=== PATIENT | female | born 1935 | race Caucasian/White ===

== ENCOUNTER 2016-10-27 10:10 | Inpatient (IN) | payer MEDICARE, OTHER ==
[~2016-10-27] VITALS: Ht 162.6 cm; Wt 90.4 kg
[2016-10-27 04:57] VITALS: BP 135/64; PULSE 68; RESP 18; TEMP 97.3; O2SAT 98
[~2016-10-27 10:10] MED LIST: ATOR40TA PO; CALTTAB5 PO; CARV12.52 PO; ESTR1TAB PO; LISI10TA PO; NIAC500T5 PO; OMEP20CA5 PO; ST J81CH PO; VITA400C70 PO
[2016-10-27] MEDS ORDERED: INSULIN HUMAN REGULAR 1,000 UNITS/10 ML VIAL SQ PRN (10:45)
[2016-10-27] MEDS ORDERED: POVIDONE IODINE 5% (ANTISEPSIS KIT) 4 APPLICATIONS EACH NARE PRN (10:45)
[2016-10-27] MEDS ORDERED: SODIUM CHLORID 0.9% 500 ML IV PRN (10:45)
[2016-10-27] MEDS ORDERED: LACTATED RINGER'S 1000 ML IV PRN (10:45)
[2016-10-27] MEDS ORDERED: VANCOMYCIN 1000 MG/NS 250 ML (for <70 kg) IV SCH ×2 (10:45)
[2016-10-27] MEDS ORDERED: CHLORHEXIDINE GLUCONATE 2 % 1 PACK (2 CLOTHS) TOPICAL PRN (10:45)
[2016-10-27] MEDS ORDERED: METOPROLOL TARTRATE 25 MG TAB PO PRN (10:45)
[2016-10-27] MEDS ORDERED: CHLORHEXIDINE GLUCONATE 4% SOLN 120 ML BTL TOPICAL SCH (10:45)
[2016-10-27] MEDS ORDERED: ceFAZolin 2 GM PREMIX 50 ML IV SCH (10:45)
[2016-10-27] MEDS ORDERED: ROPIVACAINE PERI-ARTICULAR INJECTION. P-ARTICULR SCH ×5 (11:00)
[2016-10-27] MEDS ORDERED: CARV12.52 PO (11:04)
[2016-10-27] MEDS ORDERED: NEXI20CA PO (11:04)
[2016-10-27] MEDS ORDERED: OMEP20TA PO (11:04)
[2016-10-27] MEDS ORDERED: NIAC500T5 PO (11:04)
[2016-10-27] MEDS ORDERED: LISI10TA PO (11:04)
[2016-10-27] MEDS ORDERED: ASPI81CH CHEW (11:04)
[2016-10-27] MEDS ORDERED: ATOR1TAB18 PO (11:04)
[2016-10-27] MEDS ORDERED: VITA200C3 PO (11:04)
[2016-10-27] MEDS ORDERED: ESTR1TAB PO (11:04)
[2016-10-27 11:32] LABS: AUTOMATED NEUTROPHIL # 3.1 TH/MM3 (1.8-7.7); BASOPHIL % 0.4 % (0.0-2.0); EOSINOPHIL # 0.1 TH/MM3 (0-0.4); EOSINOPHIL % 2.7 % (0.0-4.0); HEMATOCRIT 37.2 % (35.0-46.0); HEMO FLAGS DIFF FINAL; LYMPH % 31.3 % (9.0-44.0); LYMPHOCYTE # 1.7 TH/MM3 (1.0-4.8); MEAN CELL VOLUME 83.6 FL (80.0-100.0); MEAN CORPUSCULAR HEMOGLOBIN 26.9 PG (27.0-34.0); MEAN CORPUSCULAR HGB CONC 32.1 % (32.0-36.0); MONO % 9.3 % (0.0-8.0); NEUT % 56.3 % (16.0-70.0); PLATELET COUNT 125 TH/MM3 (150-450); RED BLOOD COUNT 4.45 MIL/MM3 (4.00-5.30); RED CELL DISTRIBUTION WIDTH 15.7 % (11.6-17.2); WHITE BLOOD COUNT 5.5 TH/MM3 (4.0-11.0)
[2016-10-27] MEDS ORDERED: GENTAMICIN SULFATE 80 MG/2 ML VIAL ONE (11:51)
--- NOTE | 2016-10-27 11:51 | EKG ---
Date Performed: 10/27/2016 Time Performed: 10:57:54 PTAGE: 81 years EKG: Sinus rhythm LEFT AXIS DEVIATION LOW QRS VOLTAGE IN PRECORDIAL LEADS POSSIBLE ANTERIOR MYOCARDIAL INFARCTION , OR OBABLY OLD ABNORMAL ECG PREVIOUS TRACING : 05/02/2014 09.43 No significant change from previous tracing noted DOCTOR: Marcos Nolan Interpretating Date/Time 10/27/2016 11:51:02
[2016-10-27] MEDS ORDERED: BUPIVACAINE LIPOSOME PF 1.3% 20 ML VIAL ONE (11:58)
[2016-10-27] MEDS ORDERED: ONDANSETRON HCL 4 MG/2 ML VIAL IV PUSH ONE (12:00)
[2016-10-27] MEDS ORDERED: PHENYLEPH/NS 1000 MCG/10 ML SYR IV ONE (12:00)
[2016-10-27] MEDS ORDERED: MORPHINE SULFATE 4 MG/ML INJ IV ONE (12:00)
[2016-10-27] MEDS ORDERED: ePHEDrine/NS 25 MG/5 ML SYR IV ONE (12:00)
[2016-10-27] MEDS ORDERED: LACTATED RINGER'S 1000 ML INJ 1,000 ML IV ONE (12:00)
[2016-10-27] MEDS ORDERED: NEOSTIGMINE 3 MG/3 ML SYR IV ONE (12:00)
[2016-10-27] MEDS ORDERED: DEXAMETHASONE SOD PHOS 4 MG/ML VIAL IV ONE (12:00)
[2016-10-27] MEDS ORDERED: LABETALOL HCL 100 MG/20 ML VIAL IV ONE (12:00)
[2016-10-27] MEDS ORDERED: ROCURONIUM INJ 50 MG/5 ML SYRINGE IV PUSH ONE (12:00)
[2016-10-27] MEDS ORDERED: LIDOCAINE HCL 1% PF 5 ML AMPULE OTHER ONE (12:00)
[2016-10-27] MEDS ORDERED: GLYCOPYRROLATE 1 MG/5 ML SYRINGE IV PUSH ONE (12:00)
[2016-10-27] MEDS ORDERED: ACETAMINOPHEN 1000 MG/100 ML 100 ML IV ONE (13:09)
[2016-10-27] MEDS ORDERED: Post-op Orders (for Pharmacy) MISC XX ONE (14:25)
[2016-10-27] MEDS: SODIUM CHLORIDE 0.9% FLUSH 5 ML FLUSH IVF SCH ×2 (14:45→21:00)
[2016-10-27] MEDS ORDERED: MORPHINE SULFATE 8 MG/ML INJ IM PRN (14:45)
[2016-10-27] MEDS ORDERED: SODIUM CHLORIDE 0.9% FLUSH 5 ML FLUSH IVF PRN (14:45)
[2016-10-27] MEDS ORDERED: ALUMINUM/MAGNESIUM/SIMETH 30 ML CUP PO PRN (14:45)
[2016-10-27] MEDS ORDERED: ZOLPIDEM TARTRATE 5 MG TAB PO PRN (14:45)
[2016-10-27] MEDS ORDERED: ONDANSETRON HCL 4 MG/2 ML VIAL IVP PRN (14:45)
[2016-10-27] MEDS ORDERED: ACETAMINOPHEN/HYDROcodone 325 MG/7.5 MG TAB PO PRN (14:45)
--- NOTE | 2016-10-27 14:46 | HHI.PR ---
Immediate Post Op Note Procedure Date: Oct 27, 2016 Pre Op Diagnosis: (1) Painful total knee replacement (2) Osteoarthritis of right knee Post Op Diagnosis: (1) Painful total knee replacement (2) Osteoarthritis of right knee Surgeon: Arturo Gates M.D. Grave Digger(s): Lizbeth Gallegos PA-C Procedure: R rev TKA Complications: none Estimated blood loss: 25cc Anesthesia: General, Regional Block, Local Drains: Hemovac Tourniquet time (min at mmHg) 23 @ 250 mmhg Patient to: PACU Patient Condition: Good Implant/Devices: SEE IMPLANT LOG (if applicable) Date/Time of Procedure: SEE SURGICAL CARE RECORD Arturo Gates MD Oct 27, 2016 14:46
--- NOTE | 2016-10-27 14:49 | HHI.FF ---
Face to Face Verification Diagnosis: (1) Painful total knee replacement Physical Therapy Gait training, Transfer training, bed to chair Knee: Total knee, Protocol: Right, Full weight bearing Right LE Weight Bearing: WB as tolerated Left LE Weight Bearing: WB as tolerated Nursing RN: 3 days/week x 2 weeks Nursing: Dressing changes (clean incision with alcohol and apply dry sterile dressing ) Additional Instructions Pt/INR q Thursday and call/text results to Lizbeth SILVA [phone] Goal INR 1.5-1.8 I have seen patient Rosalie Christiansen on 10/27/16. My clinical findings support the need for the requested home health care services because: Deconditioned w/ increased weakness I certify that my clinical findings support that this patient is homebound because: Post-op weakness Arturo Gates MD Oct 27, 2016 14:49
[2016-10-27] MEDS ORDERED: BEDSIDE COMMODE1 MI1 (14:51)
[2016-10-27] MEDS ORDERED: CPMMACHINE (14:51)
[2016-10-27] MEDS ORDERED: WALKER WHEELS/F1 MIS (14:51)
[2016-10-27] MEDS ORDERED: *morphine SULFATE 8 MG/ML PERIprocedure ONLY ONE (14:54)
[2016-10-27] MEDS ORDERED: *ENALAPRILAT 1.25 MG/ML VIAL PERIprocedural Use ONLY ONE (14:54)
[2016-10-27] MEDS: LACTATED RINGER'S 1000 ML INJ 1,000 ML IV SCH (15:00)
--- NOTE | 2016-10-27 15:10 | RADRPT ---
EXAM DATE/TIME: 10/27/2016 14:52 [facility] COMPARISON: No previous studies available for comparison. INDICATIONS : Post op right knee surgery. MEDICAL HISTORY : None. SURGICAL HISTORY : None. ENCOUNTER: Initial ACUITY: 1 day PAIN SCORE: 10/10 LOCATION: Right knee FINDINGS: AP and lateral views of the right knee demonstrate changes consistent with recent total knee arthropl asty with metallic hardware in place in the distal femur and proximal tibia. There is a radiolucent p atellar component. Skin megan are present anteriorly. There is soft tissue gas present, as expected . A surgical drain is in place. CONCLUSION: Expected changes following right total knee arthroplasty. Santosh Negrete MD on October 27, 2016 at 15:08 Board Certified Radiologist. This report was verified electronically.
[2016-10-27] MEDS ORDERED: DO NOT ADM ANY ANTICOAGULANT DRUGS PRN (15:30)
[2016-10-27] MEDS ORDERED: ENALAPRILAT 1.25 MG/ML VIAL IV PUSH PRN (17:00)
--- NOTE | 2016-10-27 18:08 | PD.CONS ---
HPI Service [facility] Hospitalists Consult Requested By ortho Reason for Consult Medical management Primary Care Physician Radha Amaya M.D. Diagnoses: History of Present Illness 81 years old female admitted for revision right total knee arthroplasty, hospitalist service consulted to see patient regarding medical management, patient stated she has hypertension and hypercholesterolemia for which she take medication, she denied anyH/O heart attack or stroke, she denied smoking or drinking alcohol, currently she is in post op doing well awake alert, no chest pain short of breath fever or chills, she feels hungry. Review of Systems All systems reviewed and was positive for what is mentioned in history of present illness otherwise negative Past Family Social History Allergies: Coded Allergies: codeine (Unverified Allergy, Severe, Nausea/Vomiting, 09/23/16) PT NOT SURE SHE IS ALLERGIC TO THIS- MILD REACTION penicillin G (Unverified Allergy, Severe, RASH, 09/23/16) MILD REACTION risedronate sodium (Unverified Allergy, Severe, Nausea/Vomiting, 09/23/16) MILD REACTION Past Medical History Hypertension, hyperlipidemia Past Surgical History Right total knee arthroplasty Family History Review with the patient,not aware of significant medical history runs in his family Social History Denied tobacco alcohol or illicit drug abuse Physical Exam Vital Signs Vital Signs Date Time Temp Pulse Resp B/P (MAP) Pulse Ox O2 Delivery O2 Flow Rate FiO2 10/27/16 17:00 58 16 160/71 (100) 96 Room Air 10/27/16 16:45 56 16 100 10/27/16 16:00 54 16 159/70 (99) 99 Nasal Cannula 2 10/27/16 15:45 52 16 165/71 (102) 99 Nasal Cannula 2 10/27/16 15:30 60 16 184/94 (124) 100 Nasal Cannula 2 10/27/16 15:15 56 16 161/83 (109) 98 Nasal Cannula 2 10/27/16 15:00 54 16 157/68 (97) 97 Nasal Cannula 2 10/27/16 14:45 58 16 161/74 (103) 99 Nasal Cannula 2 10/27/16 14:30 66 16 204/89 (127) 98 Nasal Cannula 2 10/27/16 14:25 97.6 68 16 225/93 (137) 99 Nasal Cannula 2 10/27/16 11:04 98.4 67 20 166/73 (104) 99 Physical Exam GENERAL: This is a well-nourished, well-developed patient, in no apparent distress. SKIN: No rashes, warm and dry HEAD: Atraumatic. Normocephalic. EYES: Pupils equal round and reactive. Extraocular motions intact. No scleral icterus. ENT: Nose without bleeding, or drainage, Airway patent. NECK: Trachea midline. Supple CARDIOVASCULAR: Regular rate and rhythm without murmurs, gallops, or rubs. RESPIRATORY: Fair air entry bilaterally. No wheezes, rales, or rhonchi. GASTROINTESTINAL: Abdomen soft, non-tender, nondistended. Positive bowel sounds MUSCULOSKELETAL: Extremities without clubbing, cyanosis, or edema. Pedal pulses appreciated, right lower extremity in gauze, able to wiggle toes NEUROLOGICAL: Awake and alert. Moves all extremity. Normal speech.no focal neurological deficit Laboratory Laboratory Tests Test 10/27/16 11:05 White Blood Count 5.5 Red Blood Count 4.45 Hemoglobin 11.9 Hematocrit 37.2 Mean Corpuscular Volume 83.6 Mean Corpuscular Hemoglobin 26.9 Mean Corpuscular Hemoglobin Concent 32.1 Red Cell Distribution Width 15.7 Platelet Count 125 Mean Platelet Volume 9.0 Neutrophils (%) (Auto) 56.3 Lymphocytes (%) (Auto) 31.3 Monocytes (%) (Auto) 9.3 Eosinophils (%) (Auto) 2.7 Basophils (%) (Auto) 0.4 Neutrophils # (Auto) 3.1 Lymphocytes # (Auto) 1.7 Monocytes # (Auto) 0.5 Eosinophils # (Auto) 0.1 Basophils # (Auto) 0.0 CBC Comment DIFF FINAL Differential Comment Result Diagram: 10/27/16 1105 Imaging Last Impressions Knee X-Ray 10/27/16 1438 Signed Impressions: Service Date/Time: Thursday, October 27, 2016 14:52 - CONCLUSION: Expected changes following right total knee arthroplasty. Santosh Negrete MD Assessment and Plan Assessment and Plan 81 years old female admitted for Right total knee arthroplasty revision Uncontrolled Hypertension, could be due to pain Hyperlipidemia DVT prophylaxis per ortho Recommendation: Will check BMP Agree with continuing lisinopril and carvedilol hydrochlorothiazide, will add Vasotec as needed after making sure renal function is good, make sure of good pain control Agree with continuing statin Warfarin for DVT prophylaxis started by ortho Morphine for pain management Thank you for this consultation will follow patient along with you Discussed Condition With patient Tawnya Moser MD Oct 27, 2016 18:08
[2016-10-27 20:41] VITALS: O2SAT 94
[2016-10-27 20:45] VITALS: BP 151/74; PULSE 79; RESP 18; TEMP 97.2; O2SAT 96
[2016-10-27] MEDS: ATORVASTATIN 80 MG TAB PO SCH (22:10)
[2016-10-27] MEDS: CARVEDILOL 12.5 MG TAB PO SCH (22:10)
[2016-10-27 23:00] VITALS: BP 143/70; PULSE 76; RESP 18; TEMP 98.6; O2SAT 97
[2016-10-28] MEDS: LACTATED RINGER'S 1000 ML INJ 1,000 ML IV SCH (03:08)
[2016-10-28 04:50] VITALS: BP 167/89; PULSE 79; RESP 18; TEMP 97.5; O2SAT 95
[2016-10-28] MEDS: ACETAMINOPHEN/HYDROcodone 325 MG/7.5 MG TAB PO PRN ×4 (05:28→21:25)
--- NOTE | 2016-10-28 07:28 | PD.ORT.PN ---
Subjective Subjective Remarks POD#1 R Rev TKR No sob,no chest pain Discussed with patient operative findings and answered multiple questions Objective Vitals Vital Signs Date Time Temp Pulse Resp B/P (MAP) Pulse Ox O2 Delivery O2 Flow Rate FiO2 10/27/16 23:00 98.6 76 18 143/70 (94) 97 10/27/16 20:45 97.2 79 18 151/74 (99) 96 10/27/16 20:41 94 21 10/27/16 19:30 65 16 156/72 (100) 95 Room Air 10/27/16 18:00 60 16 146/79 (101) 94 Room Air 10/27/16 17:00 58 16 160/71 (100) 96 Room Air 10/27/16 16:45 56 16 100 10/27/16 16:00 54 16 159/70 (99) 99 Nasal Cannula 2 10/27/16 15:45 52 16 165/71 (102) 99 Nasal Cannula 2 10/27/16 15:30 60 16 184/94 (124) 100 Nasal Cannula 2 10/27/16 15:15 56 16 161/83 (109) 98 Nasal Cannula 2 10/27/16 15:00 54 16 157/68 (97) 97 Nasal Cannula 2 10/27/16 14:45 58 16 161/74 (103) 99 Nasal Cannula 2 10/27/16 14:30 66 16 204/89 (127) 98 Nasal Cannula 2 10/27/16 14:25 97.6 68 16 225/93 (137) 99 Nasal Cannula 2 10/27/16 11:04 98.4 67 20 166/73 (104) 99 I/O 10/27/16 10/27/16 10/27/16 10/28/16 10/28/16 10/28/16 07:00 15:00 23:00 07:00 15:00 23:00 Intake Total 700 ml 700 ml Output Total 25 ml 510 ml Balance 675 ml 190 ml Intake Oral 360 ml IV Total 340 ml Other 700 ml Output Drainage Total 110 ml Estimated Blood Loss 25 ml Other 400 ml # Voids 2 # Bowel Movements 0 Result Diagram: 10/27/16 1105 Imaging Last 24 hours Impressions Knee X-Ray 10/27/16 1438 Signed Impressions: Service Date/Time: Thursday, October 27, 2016 14:52 - CONCLUSION: Expected changes following right total knee arthroplasty. Santosh Negrete MD Objective Remarks N/V intact Dressings dry Assessment & Plan Assessment and Plan Ortho stable PT/Rehab Coumadin,TEDS,Sequentials for DVT prophylaxsis D/C home on Wed with [facility] PT/Nursing Arturo Gates MD Oct 28, 2016 07:28
[2016-10-28 08:00] VITALS: BP_SYST 102; BP_SYST 180; BP_DIAS 71; BP_DIAS 75; PULSE 72; RESP 16; RESP 18; TEMP 96; TEMP 97.6; O2SAT 94; O2SAT 97
[2016-10-28 08:30] LABS: HEMATOCRIT 30.1 % (35.0-46.0); REVIEW FLAG FINAL
[2016-10-28 08:36] LABS: PROTHROMBIN TIME - PATIENT 11.1 SEC (9.8-11.6)
[2016-10-28 08:38] VITALS: O2SAT 98
[2016-10-28] MEDS: SODIUM CHLORIDE 0.9% FLUSH 5 ML FLUSH IVF SCH ×2 (09:00→21:17)
[2016-10-28] MEDS ORDERED: NON-FORMULARY DRUG (Lisinopril-Hctz 1 TAB) PO SCH (09:00)
[2016-10-28] MEDS ORDERED: NON-FORMULARY DRUG (Esomeprazole DR (Nexium) 20 MG) PO SCH (09:00)
[2016-10-28] MEDS ORDERED: LISINOPRIL 10 MG TAB PO SCH (09:00)
[2016-10-28] MEDS: PANTOPRAZOLE SOD 20 MG DELAYED RELEASE TAB PO SCH (10:21)
[2016-10-28] MEDS: HYDROCHLOROTHIAZIDE 25 MG TAB PO SCH (10:22)
[2016-10-28] MEDS: CARVEDILOL 12.5 MG TAB PO SCH ×2 (10:22→21:15)
[2016-10-28 12:00] VITALS: BP_SYST 130; BP_DIAS 69; BP_DIAS 89; PULSE 61; PULSE 66; RESP 16; RESP 18; TEMP 96.7; TEMP 97; O2SAT 97
[2016-10-28] MEDS: ESTRADIOL 1 MG TAB PO SCH (12:49)
--- NOTE | 2016-10-28 15:47 | HHI.PR ---
Objective Vitals Vital Signs Date Time Temp Pulse Resp B/P (MAP) Pulse Ox O2 Delivery O2 Flow Rate FiO2 10/28/16 12:00 96.7 66 18 130/69 (89) 97 10/28/16 08:38 98 21 10/28/16 08:00 97.6 72 18 180/75 (110) 97 10/28/16 04:50 97.5 79 18 167/89 (115) 95 10/27/16 23:00 98.6 76 18 143/70 (94) 97 10/27/16 20:45 97.2 79 18 151/74 (99) 96 10/27/16 20:41 94 21 10/27/16 19:30 65 16 156/72 (100) 95 Room Air 10/27/16 18:00 60 16 146/79 (101) 94 Room Air 10/27/16 17:00 58 16 160/71 (100) 96 Room Air 10/27/16 16:45 56 16 100 10/27/16 16:00 54 16 159/70 (99) 99 Nasal Cannula 2 I/O 10/27/16 10/27/16 10/27/16 10/28/16 10/28/16 10/28/16 06:59 14:59 22:59 06:59 14:59 22:59 Intake Total 700 ml 700 ml 480 ml Output Total 25 ml 510 ml Balance 675 ml 190 ml 480 ml Intake Oral 360 ml 480 ml IV Total 340 ml Other 700 ml Output Drainage Total 110 ml Estimated Blood Loss 25 ml Other 400 ml # Voids 2 4 # Bowel Movements 0 0 Result Diagram: 10/28/16 0500 Tawnya Moser MD Oct 28, 2016 15:47
[2016-10-28] MEDS ORDERED: WARFARIN SOD 5 MG TAB PO SCH (16:00)
[2016-10-28 19:56] VITALS: BP 146/80; PULSE 68; RESP 18; TEMP 97.5; O2SAT 97
--- NOTE | 2016-10-28 20:33 | HHI.PR ---
Subjective Remarks Resting comfortably in bed No event overnight Denied chest and or short of breath No fever or chills Objective Vitals Vital Signs Date Time Temp Pulse Resp B/P (MAP) Pulse Ox O2 Delivery O2 Flow Rate FiO2 10/28/16 19:56 97.5 68 18 146/80 (102) 97 10/28/16 12:00 97.0 61 16 130/89 (103) 97 10/28/16 08:38 98 21 10/28/16 08:00 97.6 72 18 180/75 (110) 97 10/28/16 08:00 96.0 72 16 102/71 (81) 94 10/28/16 04:50 97.5 79 18 167/89 (115) 95 10/27/16 23:00 98.6 76 18 143/70 (94) 97 10/27/16 20:45 97.2 79 18 151/74 (99) 96 10/27/16 20:41 94 21 I/O 10/27/16 10/27/16 10/27/16 10/28/16 10/28/16 10/28/16 07:00 15:00 23:00 07:00 15:00 23:00 Intake Total 700 ml 700 ml 480 ml 600 ml Output Total 25 ml 510 ml Balance 675 ml 190 ml 480 ml 600 ml Intake Oral 360 ml 480 ml 600 ml IV Total 340 ml Other 700 ml Output Drainage Total 110 ml Estimated Blood Loss 25 ml Other 400 ml # Voids 2 4 4 # Bowel Movements 0 0 0 Result Diagram: 10/28/16 0500 Objective Remarks GENERAL: This is a well-nourished, well-developed patient, in no apparent distress. SKIN: No rashes, warm and dry HEAD: Atraumatic. Normocephalic. EYES: Pupils equal round and reactive. Extraocular motions intact. No scleral icterus. ENT: Nose without bleeding, or drainage, Airway patent. NECK: Trachea midline. Supple CARDIOVASCULAR: Regular rate and rhythm without murmurs, gallops, or rubs. RESPIRATORY: Fair air entry bilaterally. No wheezes, rales, or rhonchi. GASTROINTESTINAL: Abdomen soft, non-tender, nondistended. Positive bowel sounds MUSCULOSKELETAL: Extremities without clubbing, cyanosis, or edema. Pedal pulses appreciated, right lower extremity in gauze, able to wiggle toes NEUROLOGICAL: Awake and alert. Moves all extremity. Normal speech.no focal neurological deficit A/P Assessment and Plan 81 years old female admitted for Right total knee arthroplasty revision Uncontrolled Hypertension, could be due to pain Hyperlipidemia DVT prophylaxis per ortho Recommendation: BMP reviewed within normal limit Will increase lisinopril to optimize blood pressure reading continue carvedilol hydrochlorothiazide, Vasotec as needed after making sure renal function is good , make sure of good pain control Agree with continuing statin Warfarin for DVT prophylaxis started by ortho Morphine for pain management Tawnya Moser MD Oct 28, 2016 20:33
[2016-10-28] MEDS: ATORVASTATIN 80 MG TAB PO SCH (21:16)
--- NOTE | 2016-10-28 22:56 | MP ---
cc: JOSE ELIAS GATES M.D., RENA M. M.D. ELSAKR, ASHRAF S. M.D. DATE OF SURGERY: 10/27/2016 PREOPERATIVE DIAGNOSIS 1. Right knee failed tibial polyethylene plastic. 2. Status post right total knee arthroplasty May 24, 2003. POSTOPERATIVE DIAGNOSIS 1. Right knee failed tibial polyethylene plastic. 2. Status post right total knee arthroplasty May 24, 2003. PROCEDURE: Right revisional total knee arthroplasty, tibial polyethylene plastic. SURGEON: Elbert Gates MD. GLIDING PILOT INSTRUCTOR: PARIS Garza My assistant in nursing Lizbeth Gallegos PA-C was present for my portion of the surgical case. She was medically necessary for my portion of the case because of the complexity of the case and to facilitate the performance of the procedure. The JUNK REMOVAL SPECIALIST at the back table did not have the skill set for this case to manipulate the instruments, e.g., the multiple different types of soft tissue retractors, trial implants and permanent implants. SPECIMEN: None. ESTIMATED BLOOD LOSS: 25 cc. COMPLICATIONS: None. ANESTHESIA: General, regional, intra-articular. DRAINS: Two. TOURNIQUET TIME: 23 minutes at 250 mmHg. CONDITION: Stable. PLAN OF ACTIVITY: Per orders. DESCRIPTION OF PROCEDURE: The patient was brought to the operating room and had satisfactory general anesthesia by Dr. Esquivel, department of anesthesia, and satisfactory regional anesthesia by Dr. Esquivel. The right lower extremity was prepped and draped in the usual sterile manner. The extremity was exsanguinated with elevation. Tourniquet inflated to 250 mmHg. Previous anterior skin incision scar was surgically excised. Primary capsulotomy was performed. Patient found to have polyethylene wear with loose pieces of polyethylene plastic within the joint itself. The metal surfaces of the tibia and the femur were still satisfactory. There is no evidence any loosening involving the patella, the femoral component or the tibial component. The polyethylene plastic was removed. The knee was irrigated with copious amounts of saline, the wound itself was dry. A trial 12 x 71 mm polyethylene plastic joint insert placed in tibia. Patient found to have excellent balance with flexion and extension. The trial component was removed and a 12 x 71 millimeter tibial component was inserted onto the tibial tray, with appropriate clipping mechanism. Synovectomy was performed. The knee was injected with 100 cc of local anesthesia provided by the pharmaceutical department. The wound was irrigated with 4000 cc of sterile saline antibiotic solution, closed over two Hemovac drains hooked up to the Autovac system. The wound was closed in multiple layers. The extensor mechanism and capsule was repaired using multiple interrupted #2 Tycron suture. Subcutaneous layers with 0 Vicryl and 2-0 Vicryl. Skin approximated with skin megan. Sterile dressings were applied. The patient tolerated the procedure well and went to the Recovery Room in stable and satisfactory condition. MD CARMINE Cary/MARK /2:23 PM /10:35 PM
[2016-10-28 23:08] VITALS: BP 100/55; PULSE 69; RESP 18; TEMP 96.7; O2SAT 97
[2016-10-29 03:44] VITALS: BP 135/64; PULSE 68; RESP 18; TEMP 97.3; O2SAT 98
[2016-10-29] MEDS: ACETAMINOPHEN/HYDROcodone 325 MG/7.5 MG TAB PO PRN ×2 (03:56→09:49)
--- NOTE | 2016-10-29 07:48 | PD.ORT.PN ---
Subjective Subjective Remarks pt doing better, does state the knee is quite sore ready to be discharged home today Objective Vitals Vital Signs Date Time Temp Pulse Resp B/P (MAP) Pulse Ox O2 Delivery O2 Flow Rate FiO2 10/29/16 03:44 97.3 68 18 135/64 (87) 98 10/28/16 23:08 96.7 69 18 100/55 (70) 97 10/28/16 19:56 97.5 68 18 146/80 (102) 97 10/28/16 12:00 97.0 61 16 130/89 (103) 97 10/28/16 08:38 98 21 10/28/16 08:00 97.6 72 18 180/75 (110) 97 10/28/16 08:00 96.0 72 16 102/71 (81) 94 I/O 10/28/16 10/28/16 10/28/16 10/29/16 10/29/16 10/29/16 07:00 15:00 23:00 07:00 15:00 23:00 Intake Total 480 ml 600 ml 720 ml 480 ml Balance 480 ml 600 ml 720 ml 480 ml Intake Oral 480 ml 600 ml 720 ml 480 ml # Voids 4 4 4 8 # Bowel Movements 0 0 0 0 Result Diagram: 10/28/16 0500 Imaging Last 24 hours Impressions Knee X-Ray 10/27/16 1438 Signed Impressions: Service Date/Time: Thursday, October 27, 2016 14:52 - CONCLUSION: Expected changes following right total knee arthroplasty. Santosh Negrete MD Objective Remarks patient sitting up in chair, just ordered breakfast right knee dressing dry and intact no calf tenderness N/V intact Assessment & Plan Assessment and Plan POD # 2 s/p R rev TKA Ortho stable PT/Rehab Coumadin,TEDS,Sequentials for DVT prophylaxsis D/C home with home health care today Lizbeth Gallegos Oct 29, 2016 07:48
[2016-10-29] MEDS: ESTRADIOL 1 MG TAB PO SCH (07:53)
[2016-10-29] MEDS: HYDROCHLOROTHIAZIDE 25 MG TAB PO SCH (07:54)
[2016-10-29] MEDS: CARVEDILOL 12.5 MG TAB PO SCH (07:55)
[2016-10-29] MEDS: PANTOPRAZOLE SOD 20 MG DELAYED RELEASE TAB PO SCH (07:55)
[2016-10-29] MEDS: SODIUM CHLORIDE 0.9% FLUSH 5 ML FLUSH IVF SCH (07:55)
[2016-10-29 08:00] VITALS: BP 166/71; PULSE 67; RESP 18; TEMP 98.3; O2SAT 98
[2016-10-29 08:30] LABS: PROTHROMBIN TIME - PATIENT 11.2 SEC (9.8-11.6)
[2016-10-29] MEDS ORDERED: LISINOPRIL 20 MG TAB PO SCH (09:00)
[2016-10-29] MEDS ORDERED: HYDR-3288 PO ×2 (11:06→11:07)
[2016-10-29] MEDS ORDERED: COUM6TAB PO (11:07)
--- NOTE | 2016-11-10 09:25 | HHI.DS ---
Discharge Summary Admission Date Oct 27, 2016 at 10:10 Discharge Date: Oct 29, 2016 Admitting Diagnosis R painful TKA Diagnosis: (1) Painful total knee replacement Diagnosis: Principal ICD Codes: T84.84XA - Painful total knee replacement; Z96.659 - Presence of unspecified artificial knee joint Status: Acute (2) Osteoarthritis of right knee Diagnosis: Secondary ICD Codes: M17.11 - Unilateral primary osteoarthritis, right knee Procedures R rev TKA Brief History This is a 81 year old female patient who presents with the following history. Patient originally underwent right total knee arthroplasty on 05/24/2003. She did very well with her right knee. Patient was in [place] this past summer vacationing. She woke up with severe right knee pain radiating into her right hip. Feels like right knee is going to give out on her. Patient ambulating with a cane. SX 10/02/16 Right knee manipulation, fluoroscopic guidance of needle, right knee aspiration under anesthesia Patient states that there are no changes except increased pain with certain ROM. Her cultures at time of knee aspiration came back at no growth. Sed rate, ESR and WBC came back within normal limits. Bone scan returned no evidence of radiographic findings to suggest loosening. Patient was having continued pain and problems with her right knee and revisional knee replacement was recommended. Imaging xrays of the right knee show total knee arthroplasty, genu valgus of 9.7 degrees PE at Discharge patient sitting up in chair, just ordered breakfast right knee dressing dry and intact no calf tenderness N/V intact Hospital Course Patient underwent satisfactory anaesthesia by the dept of anaesthesia. She underwent revisional right total knee arthroplasty on the date of admission. She was treated with low dose coumadin night before surgery and will continue with low dose coumadin for four weeks post-operatively. She was started with full weight bearing ambulation, therapy and CPM machine on pod #1. She was also seen and followed by medical team. She had knee high TEDS and sequentials during her stay for DVT prop. She progressed well and was discharged home with [facility] nursing and PT on pod #2 in stable condition. Pt Condition on Discharge: Stable Discharge Disposition: Disch w/ Home Health Serv Discharge Instructions Diet Instructions: Coumadin (Warfarin) Diet Activities You Can Perform: Weight Bearing as Lizbeth Jett Nov 10, 2016 09:25
== END 2016-10-29 13:50 | disposition home health service (06) | DRG 489 ==
LOC: HSDI 10:10 → N06A 20:01
PROVIDERS: ADMIT Orthopaedic Surgery Orthopaedic Surgery of the Spine; ATTEND Orthopaedic Surgery Orthopaedic Surgery of the Spine
PROC: 0SUV09Z Supplement Right Knee Joint, Tibial Surface with Liner, Open Approach (ICD-10-PCS; 2016-10-27)
PROC: 0SPC09Z Removal of Liner from Right Knee Joint, Open Approach (ICD-10-PCS; principal; 2016-10-27 12:47)
DX: T84.89XA Other specified complication of internal orthopedic prosthetic devices, implants and grafts, initial encounter (principal); I10 Essential (primary) hypertension; E78.00 Pure hypercholesterolemia, unspecified
CPT/HCPCS: 73560; 85014; 85018; 85025; 85610; 86850; 86900; 86901; 86920; 93005; 94150; C1776; C9290; J0131; J0690; J0735; J1100; J1580; J1885; J2270; J2370; J2405; J2710; J2795; J3010; J3370; J7050; J7120; L1830

== ENCOUNTER 2016-12-23 15:04 | Emergency (ER) | payer MEDICARE, OTHER ==
[~2016-12-23] VITALS: Ht 162.6 cm; Wt 93.8 kg
[~2016-12-23 15:04] MED LIST changes: -ATOR40TA PO; +ATOR80TA45 PO; +BEDSIDE COMMODE1 MI1; -CALTTAB5 PO; +COUM6TAB PO; +CPMMACHINE; +HYDR-3288 PO; +NEXI20CA PO; -OMEP20CA5 PO; +OMEP20TA93 PO; -ST J81CH PO; -VITA400C70 PO; +WALKER WHEELS/F1 MIS
[2016-12-23 15:14] VITALS: BP 142/70; PULSE 70; RESP 18; TEMP 97.9; O2SAT 96
[2016-12-23] MEDS ORDERED: ASPI-516 CHEW (15:38)
[2016-12-23] MEDS ORDERED: oxyCODONE/ACETAMINOPHEN 5 MG/325 MG TAB PO ONE (16:00)
--- NOTE | 2016-12-23 16:05 | PD ---
HPI Chief Complaint: Pain: Acute or Chronic Time Seen by Provider: 15:47 Travel History International Travel<30 days: No Contact w/Intl Traveler<30days: No Traveled to known affect area: No History of Present Illness HPI Patient is a 81-year-old female who was sent to the emergency room by Dr. Amaya her primary care doctor for an x-ray of her right hip as well as for an EKG. Patient reports that her right hip has been hurting her since of last week. Patient denies any fall or trauma. Reports that she has had history of multiple left hip replacements as well as bilateral knee replacements by Dr. Gates in the past. Patient reports that her right hip began to hurt on and absolutely denies any trauma to her right hip. Patient reports no fever or chills, reports no other complaints. Patient was also sent to the emergency room for an EKG for possible new onset atrial fibrillation. Patient reports that she has history of hypertension, coronary artery disease with history of stent [place] in [address] Ramos. Patient with no chest pain or shortness of breath, patient's primary care doctor request an EKG at this time. PFSH Past Medical History Arthritis: Yes Asthma: No Blood Disorders: No Heart Rhythm Problems: No Cancer: No Cardiovascular Problems: Yes (HEART CATH- INSERTION STENT) High Cholesterol: Yes Chest Pain: No Congestive Heart Failure: No COPD: No Cerebrovascular Accident: No Diabetes: No Diminished Hearing: No Endocrine: No GERD: Yes Genitourinary: Yes (BLADDER SUSPENSION X 2) Headaches: No Hepatitis: No Hiatal Hernia: Yes Hypertension: Yes Immune Disorder: No Implanted Vascular Access Dvce: Yes Kidney Stones: No Musculoskeletal: Yes (ARTHRITIS; LUMBAR FUSION) Neurologic: No Psychiatric: No Reproductive: No Respiratory: No Migraines: No Myocardial Infarction: No Renal Failure: No Seizures: No Sleep Apnea: No Thyroid Disease: No Ulcer: No ?: Not Menopausal: Yes Past Surgical History Abdominal Surgery: Yes (LAP CHOLECYSTECTOMY) AICD: No Appendectomy: Yes Arteriovenous Shunt: Yes Body Medical Devices: CARDIAC STENT X 1; PLATE LUMBAR REGION Cardiac Surgery: Yes (HEART CATH- INSERTION CARDIAC STENT X 1) Cholecystectomy: Yes Ear Surgery: No Endocrine Surgery: No Eye Surgery: No Genitourinary Surgery: Yes (BLADDER SUSPENSION; BLADDER SLING) Gynecologic Surgery: Yes (HYSTERECTOMY) Hysterectomy: Yes Insulin Pump: No Joint Replacement: Yes (AUGUSTINE KNEE-LEFT HIP) Neurologic Surgery: Yes (ANTERIOR CERVICALFUSION; LUMBAR LAMINECTOMY) Oral Surgery: Yes (EGD WITH ESOPHAGEAL DILITATION) Pacemaker: No Thoracic Surgery: No Other Surgery: Yes Social History Alcohol Use: No Tobacco Use: No Substance Use: No Allergies-Medications (Allergen,Severity, Reaction): Coded Allergies: codeine (Unverified Allergy, Severe, Nausea/Vomiting, 12/23/16) PT NOT SURE SHE IS ALLERGIC TO THIS- MILD REACTION penicillin G (Unverified Allergy, Severe, RASH, 12/23/16) MILD REACTION risedronate sodium (Unverified Allergy, Severe, Nausea/Vomiting, 12/23/16) MILD REACTION Reported Meds & Prescriptions Reported Meds & Active Scripts Active Reported Aspirin 81 Mg Chew 81 Mg CHEW DAILY [place] (Hydrocodone-Acetaminophen) 7.5-325 mg Tab 1 Tab PO Q6H PRN Lisinopril-Hctz 10-12.5 Mg Tab 1 Tab PO DAILY Nexium (Esomeprazole DR) 20 Mg Capdr 20 Mg PO DAILY Niacin 500 Mg Tab 500 Mg PO DAILY Estradiol 1 Mg Tab 1 Mg PO DAILY Carvedilol 12.5 Mg Tab 12.5 Mg PO BID Atorvastatin (Atorvastatin Calcium) 80 Mg Tab 80 Mg PO HS Review of Systems General / Constitutional: No: Fever Eyes: No: Visual changes HENT: No: Headaches Cardiovascular: No: Chest Pain or Discomfort, Palpitations, Irregular Rhythm, Tachycardia Respiratory: No: Shortness of Breath Gastrointestinal: No: Abdominal Pain Genitourinary: No: Dysuria Musculoskeletal: Positive: Limited ROM (right hip pain), Pain (right hip pain) Skin: No Rash Neurologic: No: Weakness Psychiatric: No: Depression Endocrine: No: Polydipsia Hematologic/Lymphatic: No: Easy Bruising Physical Exam Narrative GENERAL: NAD, nontoxic SKIN: Focused skin assessment warm/dry. HEAD: Atraumatic. Normocephalic. EYES: Pupils equal and round. No scleral icterus. No injection or drainage. ENT: No nasal bleeding or discharge. Mucous membranes pink and moist. NECK: Trachea midline. No JVD. CARDIOVASCULAR: Regular rate and rhythm. No murmur appreciated. RESPIRATORY: No accessory muscle use. Clear to auscultation. Breath sounds equal bilaterally. GASTROINTESTINAL: Abdomen soft, non-tender, nondistended. Hepatic and splenic margins not palpable. MUSCULOSKELETAL: No obvious deformities. No clubbing. No cyanosis. No edema. Patient with pain with active range of motion to the right hip, there is no obvious fractures or deformities NEUROLOGICAL: Awake and alert. No obvious cranial nerve deficits. Motor grossly within normal limits. Normal speech. PSYCHIATRIC: Appropriate mood and affect; insight and judgment normal. Data Data Last Documented VS Vital Signs Date Time Temp Pulse Resp B/P (MAP) Pulse Ox O2 Delivery O2 Flow Rate FiO2 12/23/16 17:49 17 12/23/16 17:38 67 151/74 (99) 98 Room Air 12/23/16 15:14 97.9 Orders Orders Electrocardiogram (12/23/16 ) Hip, Uni(Ap&Lat) Wo Ap Pelvis (12/23/16 ) Oxycodone-Acetamin 5-325 Mg (Percocet (12/23/16 16:00) Ct Hip W/O Contrast (12/23/16 ) MDM Medical Decision Making Medical Screen Exam Complete: Yes Emergency Medical Condition: Yes Medical Record Reviewed: Yes Interpretation(s) EKG at 1613: NSR at 70bpm, qt/qtc: 381/402, 1st degree av block Vital Signs Date Time Temp Pulse Resp B/P (MAP) Pulse Ox O2 Delivery O2 Flow Rate FiO2 12/23/16 15:14 97.9 70 18 142/70 (94) 96 Differential Diagnosis Osteoarthritis, hip fracture, questionable arrhythmia versus new onset atrial fibrillation Narrative Course During the course of the patients emergency department visit, the patients history, examination, and differential diagnosis were reviewed with the patient. The patient was placed on a video news editor with oximetry and frequent blood pressure monitoring. The patient was initially provided Percocet for pain Radiology studies were reviewed and remarkable for Last Impressions Hip X-Ray 12/23/16 0000 Signed Impressions: Service Date/Time: Friday, December 23, 2016 16:29 - CONCLUSION: 1. There is a subtle lucency through the mid aspect of the femoral neck. It is possible this is artifactual however I cannot exclude a nondisplaced femoral neck fracture. 2. Advanced osteoarthritic changes. Amadou Mendoza MD A nondisplaced femoral neck fracture cannot be excluded, a CT of her right hip is ordered. EKG shows normal sinus rhythm at 70 bpm, first degree AV block Last Impressions Lower Extremity CT 12/23/16 0000 Signed Impressions: Service Date/Time: Friday, December 23, 2016 17:51 - CONCLUSION: 1. No acute fracture seen. 2. Degenerative change of the right hip with possible loose bodies in the right hip joint. 3. Surgical hardware in the lumbar spine and at the left hip. Santosh Stephen MD Hip X-Ray 12/23/16 0000 Signed Impressions: Service Date/Time: Friday, December 23, 2016 16:29 - CONCLUSION: 1. There is a subtle lucency through the mid aspect of the femoral neck. It is possible this is artifactual however I cannot exclude a nondisplaced femoral neck fracture. 2. Advanced osteoarthritic changes. Amadou Mendoza MD CT of the right hip with no acute fractures, there are degenerative changes in the right hip with possible loose bodies in the right hip joint. I did give patient a copy of her CT report as she will need to follow-up with her orthopedic surgeon. Patient will follow-up with her orthopedic surgeon as well as her primary care doctor and will return to the emergency room as needed. Diagnosis Primary Impression: Osteoarthritis of right hip Qualified Codes: M16.11 - Unilateral primary osteoarthritis, right hip Patient Instructions: General Instructions, Narcotic given in the ED Additional Instructions: Please provide patient with a copy of their lab work and studies at discharge* * Please follow up with your primary care doctor in 2-3 days Return to the ER if symptoms worsen or progress Return to the ER as needed Please follow-up with your orthopedic surgeon as soon as possible Disposition: 01 DISCHARGE HOME Condition: Stable Natalie Bello DO Dec 23, 2016 16:05
--- NOTE | 2016-12-23 16:40 | RADRPT ---
EXAM DATE/TIME: 12/23/2016 16:29 [facility] COMPARISON: KNEE RIGHT LTD (1 OR 2 VWS), October 27, 2016, 14:52. INDICATIONS : Right hip pain for a week. No fall or injury. MEDICAL HISTORY : None. SURGICAL HISTORY : None. ENCOUNTER: Initial ACUITY: 1 week PAIN SCORE: 6/10 LOCATION: Right hip. FINDINGS: There is a subtle lucency through the mid aspect of the femoral neck. A nondisplaced fracture the fem oral neck is not excluded. There again is degenerative changes within the hip. CONCLUSION: 1. There is a subtle lucency through the mid aspect of the femoral neck. It is possible this is artif actual however I cannot exclude a nondisplaced femoral neck fracture. 2. Advanced osteoarthritic changes. Amadou Mendoza MD on December 23, 2016 at 16:37 Board Certified Radiologist. This report was verified electronically.
[2016-12-23 17:38] VITALS: BP 151/74; PULSE 67; RESP 18; O2SAT 98
[2016-12-23 17:49] VITALS: RESP 17
--- NOTE | 2016-12-23 18:32 | RADRPT ---
EXAM DATE/TIME: 12/23/2016 17:51 [facility] COMPARISON: HIP RIGHT (AP&LAT 2/3VWS) WO AP PELVIS, December 23, 2016, 16:29. INDICATIONS : Right hip pain for one week. No injury. Abnormal xray. RADIATION DOSE: 29.09 CTDIvol (mGy) MEDICAL HISTORY : None SURGICAL HISTORY : Left hip surgery. Lumbar surgery. ENCOUNTER: Initial ACUITY: 1 week PAIN SCALE: 6/10 LOCATION: Right hip TECHNIQUE: Volumetric scanning of the hip was performed. Using automated exposure control and adjustment of the mA and/or kV according to patient size, radiation dose was kept as low as reasonably achievable to o btain optimal diagnostic quality images. DICOM format image data is available electronically for rev iew and comparison. FINDINGS: BONES: An acute fracture is not seen. There is narrowing of the right hip joint especially superiorly and me dially. There are osteophytes at the periphery of the right femoral head. There is prominent hypertro phic change at the periphery of the right greater trochanter. Surgical hardware seen in the lower lum bar spine. There is degenerative change in the lower lumbar spine. There is a left hip prosthesis in place. JOINTS: There are several calcifications seen around the loss of the femoral neck likely representing loose b odies measuring up to 7 mm. SOFT TISSUES: Muscles, tendons and neurovascular structures are grossly unremarkable. No evidence of mass, organize d fluid collection, or foreign body. CONCLUSION: 1. No acute fracture seen. 2. Degenerative change of the right hip with possible loose bodies in the right hip joint. 3. Surgical hardware in the lumbar spine and at the left hip. Santosh Stephen MD on December 23, 2016 at 18:25 Board Certified Radiologist. This report was verified electronically.
[2016-12-23 19:12] VITALS: BP 166/90
--- NOTE | 2016-12-23 21:00 | EKG ---
Date Performed: 12/23/2016 Time Performed: 16:13:28 PTAGE: 81 years EKG: Sinus rhythm WITH FIRST DEGREE AV BLOCK WITH OCCASIONAL VENTRICULAR PREMATURE COMPLEXES MARKED LEFT AXIS DEVIATIO N LOW QRS VOLTAGE IN PRECORDIAL LEADS POSSIBLE RIGHT VENTRICULAR CONDUCTION DELAY NONSPECIFIC ST & T- WAVE ABNORMALITY ABNORMAL ECG PREVIOUS TRACING : 10/27/2016 10.57 Compared to prior tracing no significant change DOCTOR: Dmitry Kaba Interpretating Date/Time 12/23/2016 20:59:18
== END 2016-12-23 19:13 | disposition home or self-care (01) ==
LOC: PHED 15:04
DX: M16.11 Unilateral primary osteoarthritis, right hip (principal); I10 Essential (primary) hypertension; I25.10 Atherosclerotic heart disease of native coronary artery without angina pectoris; E78.00 Pure hypercholesterolemia, unspecified
CPT/HCPCS: 73502; 73700; 93005; 99285

== ENCOUNTER 2017-10-15 07:30 | Inpatient (IN) ==
[2017-10-15] MEDS ORDERED: Metoprolol Tartrate 25 MG Tablet PO ONE (08:30)
[2017-10-15] MEDS ORDERED: Chlorhexidine Gluconate 2% 1 Pack (2 Cloths) TOPICAL ONE (08:30)
[2017-10-15] MEDS ORDERED: Sodium Chlor 0.9% Inj 500 ML IV.CONT ONE (08:30)
[2017-10-15] MEDS ORDERED: Chlorhexidine 4% Topical 120 APPLIC/120 ML Bottle TOPICAL SCH (08:30)
[2017-10-15] MEDS ORDERED: Vancomycin Inj 1,000 MG in Sodium Chlor 0.9% Inj 250 ML IV.SIG SCH (09:00)
[2017-10-15] MEDS ORDERED: ceFAZolin 2 GM Premix Inj 2 GM/100 ML BAG IV.SIG SCH (09:46)
[2017-10-15] MEDS ORDERED: Propofol Inj 500 MG/50 ML Vial ONE (12:03)
[2017-10-15] MEDS ORDERED: Bupivacaine/Epinephrine Inj 0.25% 50 ML Vial ONE (12:11)
[2017-10-15] MEDS ORDERED: Gelatin Size 100 Topical Foam ONE (12:11)
[2017-10-15] MEDS ORDERED: Thrombin Topical Soln 5,000 UNIT Vial TOPICAL ONE (12:11)
[2017-10-15] MEDS ORDERED: HYDROmorphone PF Inj 2 MG/ML Vial ONE (12:31)
[2017-10-15] MEDS ORDERED: Lidocaine PF 1% Inj 5 ML Syringe INFILTRATN ONE (14:11)
[2017-10-15] MEDS ORDERED: Sod Chloride 0.9% Inj 1,000 ML IV.SIG ONE (14:11)
[2017-10-15] MEDS ORDERED: Glycopyrrolate Inj 1 MG/5 ML Syringe IV.PUSH ONE (14:11)
[2017-10-15] MEDS ORDERED: Normosol-R pH 7.4 Inj 1,000 ML IV.CONT ONE (14:11)
[2017-10-15] MEDS ORDERED: Neostigmine Inj 5 MG/5 ML Syringe IV.PUSH ONE (14:11)
[2017-10-15] MEDS ORDERED: Phenylephrine/NS 1000 MCG/10ML Syringe IV.PUSH ONE (14:11)
[2017-10-15] MEDS ORDERED: Naloxone Inj 0.4 MG/ML Vial IV.PUSH PRN (17:19)
[2017-10-15] MEDS ORDERED: Temazepam 15 MG Capsule PO PRN (17:19)
[2017-10-15] MEDS ORDERED: Morphine Inj 30 MG/30 ML PCA.VIAL PCA PRN (17:19)
[2017-10-15] MEDS ORDERED: Morphine Inj 4 MG/ML Vial IV.PUSH PRN (17:19)
[2017-10-15] MEDS ORDERED: Post-op Orders (for Pharmacy) OTHER STA (17:19)
[2017-10-15] MEDS ORDERED: Bisacodyl 10 MG Supp RECTAL PRN (17:19)
--- NOTE | 2017-10-15 17:29 | P.OP ---
- Preoperative Diagnosis (1) Lumbar spinal stenosis Preoperative Diagnosis: Lumbar spinal stenosis foraminal right L2-3. Lumbar instability, L2-3. Status post lumbar laminectomy and fusion L5-S1, remote. Status post kyphoplasty of L2, remote. Right L2 radiculopathy. Unstable scoliosis lumbar spine Postoperative Diagnosis: Same Date of procedure: 10/15/17 Procedure: Lumbar laminectomy from the left L2, L3 with subtotal left L2-3 facet resection. Posterior spinal fusion, L2-3 lateral transverse process technique. Post lateral interbody fusion, L2-3. Placement of interbody cages, L2-3. Posterior spinal segmental instrumentation. Major bone grafting of the lumbar spine Anesthesia: GETA Surgeon: Leroy Gates MD Musculoskeletal Physician: TOMASA Christine Operation and Findings: EBL: 400 ml NOTE: Ginette Christine PA-C was present for the entire surgical procedure as my sugar laboratory assistant. In my medical opinion her skill and care was necessary for proper management of this patient INDICATIONS: This patient is an 82-year-old female who is been treated for over a year with back left hip and upper leg pain. Investigative studies shows evidence of a high-grade foraminal stenosis the left L2-3. She has a increasing acute scoliosis across that level creating severe left-sided foraminal stenosis with instability at L2-3. She is at the previous L5-S1 fusion which is stable. She now presents for decompression and fusion at the L2 -3 level. INSTRUMENTATION: Screws: Doron mel. Cage: Spine wave/staxx PROCEDURE: The patient brought to the operating room and anesthetized the supine position. The patient positioned prone on the Alfonzo frame on the Darinel table. All pressure points are protected. The back was scrubbed with alcohol followed by Hibiclens followed by ChloraPrep and draped sterilely and antibiotics were given within a routine time window. A timeout was done. Lateral radiographic images used to identify the proper level for the procedure. Compared care for the preoperative studies. Skin markings were made anticipating surgical treatment. A left paramedian incision was made. The lamina and facet joint was exposed. We used a dilating retractor which was positioned over this region. The microscope was rolled into the field for visualization. A high-speed bur was used to take the lamina down and doing a subtotal facet resection. The exiting and crossing nerve roots were completely decompressed. A total discectomy was accomplished. The disc space was prepared. All cartilaginous material from the disc space was removed. A combination of demineralized bone matrix and Nucel stem cells were mixed together on the back table.. These were injected into the disc space. The cage was then placed according to steam clean machine operator's recommendation and deployed. Position was satisfactory. Additional bone graft was placed into the disc space. The outer edge of the facet joint was identified and prepared. Under fluoroscopic images, a bur was used to gain entrance into the pedicle followed by placement of a blunt probe, an awl and placement of proper length screws. Each screw was charged with electric current there are no abnormal potentials registered in either lower extremity. A proper length svitlana was fitted and attached and tightened according to steam clean machine operator's recommendation. The wound was irrigated copiously. Bone grafting was placed along the lateral gutter in the region of the transverse process across this level. This was closed in layers with #1 Vicryl, 2-0 Vicryl and running intradermal 3-0 Vicryl followed by Steri-Strips and benzoin. On the contralateral side a separate exposure was made. The outer edge of the facet joints were identified. A bur was used to gain entrance into the pedicle followed by placement of a probe and proper length screws. Each screw was charged with electric current and no abnormal potentials registered in either lower extremity. The wound was irrigated copiously. Bone graft placed along the transverse process across this level. It was closed in layers using #1 Vicryl, 2-0 Vicryl and running intradermal 3-0 Vicryl followed by Steri-Strips and benzoin. Intraoperative radiographs were obtained. No complication was appreciated. The patient had a sterile dressing applied. The patient was awakened and taken to recovery room in satisfactory condition. FINDINGS: There was a severe scoliosis. We had a partial correction with the decompression to the left side and placement of the cage eccentric to the left. Screw placement appear to be satisfactory. There was no complication that was appreciated.
--- NOTE | 2017-10-15 17:43 | XR ---
EXAM DATE: 10/15/2017 5:27 PM EDT AGE/SEX: 82 years / Female INDICATIONS: L2-L3 fusion and laminectomy done in the operating room. CLINICAL DATA: This is the patient's initial encounter. Patient reports that signs and symptoms have been present for 1 day and indicates a pain score of Nonresponsive. MEDICAL/SURGICAL HISTORY: None. Fusion, lumbar. COMPARISON: [facility] [place] (AP & LAT), 02/26/2012. . FINDINGS: There is anterior and posterior fusion with pedicle screws and interbody graft from L2-L3. The alignm ent is anatomic. CONCLUSION: Postsurgical changes as above. Electronically signed by: Tashi West MD 10/15/2017 5:42 PM EDT
[2017-10-15] MEDS ORDERED: fentaNYL Citrate Inj 100 MCG/2 ML Ampul ONE (17:52)
[2017-10-15] MEDS ORDERED: *morphine SULFATE 10 MG/ML PERIprocedure ONLY ONE ×2 (18:04→19:00)
[2017-10-15] MEDS ORDERED: Sodium Chlor 0.9% Inj 50 ML ONE ×2 (18:31→18:32)
[2017-10-15] MEDS: Carvedilol 12.5 MG Tablet PO SCH (22:40)
[2017-10-15] MEDS: Senna/Docusate Sodium 8.6/50 MG Tablet PO SCH (22:40)
[2017-10-15] MEDS: Multivitamin/Minerals Therapeutic Tablet PO SCH (22:40)
--- NOTE | 2017-10-16 07:48 | P.PNOP ---
Subjective Interval history: Doing well today. Back pain 'better than expected'. She denies any new leg pain. No CP or SOB. Her accidentally took her brace home so she is waiting for his return. Physical Exam Vital signs: Vital Signs 10/15/17 09:57 10/15/17 17:45 10/15/17 18:00 Temperature 98.0 F 99 F Pulse Rate 63 90 97 H Respiratory Rate 18 14 22 Blood Pressure 143/69 H 125/62 161/78 H Pulse Oximetry 95 99 98 10/15/17 18:15 10/15/17 18:25 10/15/17 18:30 Temperature Pulse Rate 80 77 Respiratory Rate 16 11 L Blood Pressure 158/62 H 152/68 H Pulse Oximetry 98 98 97 10/15/17 18:45 10/15/17 19:00 10/15/17 19:15 Temperature Pulse Rate 82 92 H 87 Respiratory Rate 14 22 14 Blood Pressure 157/61 H 163/84 H 152/78 H Pulse Oximetry 97 96 94 L 10/15/17 19:30 10/15/17 19:45 10/15/17 20:00 Temperature 97.2 F L Pulse Rate 85 79 84 Respiratory Rate 20 16 12 Blood Pressure 148/63 H 146/63 H 158/70 H Pulse Oximetry 97 97 97 10/15/17 20:50 10/15/17 22:19 10/16/17 00:00 Temperature 98.2 F 97.6 F Pulse Rate 76 77 Respiratory Rate 16 18 12 Blood Pressure 158/70 H 155/70 H Pulse Oximetry 98 98 10/16/17 04:00 Temperature 98.1 F Pulse Rate 70 Respiratory Rate 13 Blood Pressure 160/68 H Pulse Oximetry 96 Intake & Output 10/15/17 10/16/17 10/16/17 18:59 06:59 18:59 Intake Total 2250 / 2250 1101 / 1101 Output Total 850 / 850 850 / 850 Balance 1400 / 1400 251 / 251 Weight 86.9 kg Intake: IV 250 / 250 350 / 350 NS Inj 50 ML @ 0 mls/hr .ROUTE 50 / 50 .STK-MED ONE Rx#:[id number] LR 1000 mL Inj 1,000 ML @ 30 100 / 100 mls/hr IV.CONT .Q24H ONE Rx#: [id number] Vancomycin Inj 1,000 MG In NS 250 / 250 Inj 250 ML @ 250 mls/hr IV.SIG [place] [facility] LORE Rx#:[id number] Ancef Inj 1,000 MG In NS Inj 200 / 200 100 ML @ 200 mls/hr IV.SIG Q6H LORE Rx#:[id number] Oral 751 / 751 Anesthesia Amount 1999 / 1999 Output: Urine 500 / 500 Estimated Blood Loss 400 / 400 Urine Amount (Catheter) 450 / 450 350 / 350 Indwelling Urethral Catheter 450 / 450 350 / 350 Other: Date of Last Bowel Movement 10/14/17 Weight On Admission 86.9 kg Narrative: Sitting up in bed NAD VSS L/S Dressing c/d/i, mild drainage, mild swelling, no erythema +motor iliopsoas (chronic weakness left foot), +sens, +nvi neg homans bilat - Urinary Catheter Management Indwelling Urethral Catheter Cath placed during this visit: yes Reason for continuing: Hourly intake/output Insertion date: 10/15/17 Insertion time: 13:09 Results - Labs Laboratory Results - last 24 hr 10/15/17 10:00 Blood Type A Positive Antibody Screen Negative - Imaging Impressions Lumbar Spine X-Ray 10/15/17 00:00 CONCLUSION: Postsurgical changes as above. - Procedures Laminectomy and fusion L23, posterior instrumentation and interbody cage L23, bone graft Assessment and Plan - Ortho Post Op Day # 1 - Assessment and Plan pod#1 s/p Lami L23, PSF/PSSI L23, bone graft Doing very well, 'better than expected'. Her low back pain is well controlled. Her is on his way with the brace. When he arrives she can use it and get out of bed and ambulate. If she does well today, ok to d/c home w [facility] today after PT session. PO pain meds as needed. PT - Brace multimedia editor when out of bed. Ok to remove for hygiene. Ice lumbar spine bid. Hold dressing changes unless saturated. F/U in 2 weeks as scheduled.
--- NOTE | 2017-10-16 07:48 | P.DS ---
Date of admission: 10/15/17 17:19 Primary care physician: Radha Amaya MD Attending physician on discharge: Leroy Ann Anticipated date of discharge: 10/16/17 DS: Diagnosis - Discharge Diagnosis (1) Lumbar spinal stenosis Status: Acute DS: Medications - Discharge Medications Prescriptions: hydrocodone-acetaminophen 1 tab PO Q4H PRN #42 tab PRN Reason: Acute Pain DS: Summary Hospital Course: Surgical treatment was performed on the day of admission without complication. The patient recovered well in PACU and was transferred to the orthopedic floor. IV and oral medications were supplied. The patient was compliant with physical therapy and all precautions. After ___ days she was found to be stable and discharged to a ____. She was encouraged to continue physical therapy, to elevate the operative limb and ice it 2-3 times daily, and to pursue a high fiber diet. She was given prescriptions of [place] 7.5mg and ASA 81mg twice daily. - Time Spent with Patient Total time spent providing and/or coordinating discharge services: Greater than 30 minutes - Quality: VTE Deep Vein Thrombosis/Pulmonary Embolism Present on Admission: No Exam Vital signs: Vital Signs 10/15/17 09:57 10/15/17 17:45 10/15/17 18:00 Temperature 98.0 F 99 F Pulse Rate 63 90 97 H Respiratory Rate 18 14 22 Blood Pressure 143/69 H 125/62 161/78 H Pulse Oximetry 95 99 98 10/15/17 18:15 10/15/17 18:25 10/15/17 18:30 Temperature Pulse Rate 80 77 Respiratory Rate 16 11 L Blood Pressure 158/62 H 152/68 H Pulse Oximetry 98 98 97 10/15/17 18:45 10/15/17 19:00 10/15/17 19:15 Temperature Pulse Rate 82 92 H 87 Respiratory Rate 14 22 14 Blood Pressure 157/61 H 163/84 H 152/78 H Pulse Oximetry 97 96 94 L 10/15/17 19:30 10/15/17 19:45 10/15/17 20:00 Temperature 97.2 F L Pulse Rate 85 79 84 Respiratory Rate 20 16 12 Blood Pressure 148/63 H 146/63 H 158/70 H Pulse Oximetry 97 97 97 10/15/17 20:50 10/15/17 22:19 10/16/17 00:00 Temperature 98.2 F 97.6 F Pulse Rate 76 77 Respiratory Rate 16 18 12 Blood Pressure 158/70 H 155/70 H Pulse Oximetry 98 98 10/16/17 04:00 Temperature 98.1 F Pulse Rate 70 Respiratory Rate 13 Blood Pressure 160/68 H Pulse Oximetry 96 Intake & Output 10/15/17 10/16/17 10/16/17 18:59 06:59 18:59 Intake Total 2250 / 2250 1101 / 1101 Output Total 850 / 850 850 / 850 Balance 1400 / 1400 251 / 251 Weight 86.9 kg Intake: IV 250 / 250 350 / 350 NS Inj 50 ML @ 0 mls/hr .ROUTE 50 / 50 .STK-MED ONE Rx#:[id number] LR 1000 mL Inj 1,000 ML @ 30 100 / 100 mls/hr IV.CONT .Q24H ONE Rx#: [id number] Vancomycin Inj 1,000 MG In NS 250 / 250 Inj 250 ML @ 250 mls/hr IV.SIG SUBSTANCE ABUSE SERVICES DIRECTOR [facility] Rx#:[id number] Ancef Inj 1,000 MG In NS Inj 200 / 200 100 ML @ 200 mls/hr IV.SIG Q6H [facility] Rx#:[id number] Oral 751 / 751 Anesthesia Amount 1999 / 1999 Output: Urine 500 / 500 Estimated Blood Loss 400 / 400 Urine Amount (Catheter) 450 / 450 350 / 350 Indwelling Urethral Catheter 450 / 450 350 / 350 Other: Date of Last Bowel Movement 10/14/17 Weight On Admission 86.9 kg Results Procedures completed during hospitalization: Laminectomy and fusion L23, posterior instrumentation and interbody cage L23, bone graft Labs on day of discharge: Labs from last 24 hours 10/15/17 10:00 Blood Type A Positive Antibody Screen Negative - Impressions ITS Impressions Lumbar Spine X-Ray 10/15/17 00:00 CONCLUSION: Postsurgical changes as above. Discharge Plan - Discharge Disposition Patient Disposition: /Home Health Service - Discharge Condition Condition: Good - Discharge Order Discharge Orders: Discharge Order (Routine); Ordered 10/16/17 Ordered By: Leroy Ann - Discharge Details Anticipated Discharge Date: 10/16/17 - Physicians Team Primary Care Provider: Radha Amaya Attending Provider: Leroy Ann Other Providers: [facility] - Rxs /Orders / Referrals /Forms Prescriptions: New hydrocodone-acetaminophen 10-325 mg Tablet 1 tab PO Q4H PRN (Reason: Acute Pain) Qty: 42 RF: 0 Continue acetaminophen [Tylenol Extra Strength] 500 mg Tablet 1,000 mg PO Q6H PRN (Reason: Pain) aspirin [Aspirin Low Dose] 81 mg Tablet,Delayed Release (Dr/Ec) 81 mg PO DAILY atorvastatin 80 mg Tablet 80 mg PO DAILY carvedilol 12.5 mg Tablet 12.5 mg PO BID esomeprazole magnesium [Nexium] 20 mg Capsule,Delayed Release(Dr/Ec) 20 mg PO DAILY estradiol 1 mg Tablet 1 mg PO DAILY hydrocodone-acetaminophen [[place]] 5-325 mg Tablet 0.5 tab PO Q4-6H PRN (Reason: Pain) niacin 500 mg Tablet 500 mg PO DAILY Ambulatory Orders / Order Sets / DME: Walker With Front Wheels (1 each) (Routine) Location: Determined by Patient Ordered By: Leroy Ann Referrals: [facility] [Outside] - See Instructions Radha Amaya MD [Primary Care Provider] - See Instructions - Discharge Instructions Patient Printed Instructions: Hydrocodone/Acetaminophen (By mouth), Laxative, Stool Softeners (By mouth), Laminectomy (DC), How to Choose and Use a Walker ( GEN), Surgical Site Infections (DC), Acute Low Back Pain (ED), How To Wash Your Hands (DC), Back Pain (ED), Fall Prevention (DC), How to Transfer a Person Safely (DC) Additional Instructions: OUT OF BED WITH BRACE DO NOT CHANGE DRESSING UNLESS SATURATED OR ERYTHEMA FOLLOW UP WITH DR ANN ADVISED IN CASE OF EMERGENCY CALL 911 OR RETURN TO [facility] NO TWISTING OF TORSO, NO BENDING - Post Discharge Care Plan Care Plan Goals: Your Health Problems: Lumbar spinal stenosis Surgery: Laminectomy L23, Posterior lumbar fusion with instrumentation L23, bone graft. Goals to Promote Your Health: * To prevent worsening of your condition * To maintain your health at the optimal level Directions to Meet Your Goals: * Take your medications as prescribed * Follow your dietary instruction. Eat high fiber foods to help avoid constipation, especially the first 5 days after surgery. * Follow activity as directed. Wear your brace worm farmer when you are out of bed. You can remove this to sleep and to bath. * Keep your dressing intact. You can begin to shower postop day 5 but the dressing must stay sealed and dry. If it gets wet (internally) then you need to begin daily dressing changes and clean the area with alcohol. * Keep your appointments as scheduled * Take your immunizations and boosters as scheduled * If your symptoms worsen call your PCP * If no PCP go to Urgent Care or Emergency Room Smoking is dangerous to your health. Avoid second hand smoke. You may reach the 24-hour crisis hotline for domestic abuse at .
--- NOTE | 2017-10-16 07:55 | P.DCO ---
- Physical Therapy Physical Therapy: Safety evaluation S/P Spinal Fusion: Gait training with walker, Weight bearing as tolerated, No twisting of torso, No bending Additional instructions: PT 3x/week for 1 week. WBAT. Out of bed with brace. Gait training. - Nursing RN days per week: 2 x week(s): 1 Dressing changes: Do not change dressing Additional instructions: RN 2x/week for 1 week. Hold dressing changes unless saturated or erythema. Vitals assessment. - Certification Need for Home Health services: I have seen patient Rosalie Christiansen on 10/16/17. My clinical findings support the need for the requested home health care services because: Need for Home Health Services: Deconditioned with increased weakness, High risk of falls Homebound Certification: I certify that my clinical findings support that this patient is homebound because: Homebound Certification: Post-op weakness
[2017-10-16] MEDS ORDERED: Estradiol 1 MG Tablet PO SCH (09:00)
[2017-10-16] MEDS ORDERED: Pantoprazole Sodium 20 MG DR Tablet PO SCH (09:00)
[2017-10-16] MEDS: Carvedilol 12.5 MG Tablet PO SCH (09:14)
[2017-10-16] MEDS: Senna/Docusate Sodium 8.6/50 MG Tablet PO SCH (09:15)
[2017-10-16] MEDS: Multivitamin/Minerals Therapeutic Tablet PO SCH (09:15)
[2017-10-16 13:22] VITALS: BP 127/57; PULSE 74; RESP 16; TEMP 97.9; O2SAT 95
== END 2017-10-16 13:36 | disposition home health service (06) ==
LOC: HSDC 07:30 → EDSTATUS 11:45 → HSDI 17:19 → N06 21:11
PROVIDERS: ADMIT Orthopaedic Surgery Orthopaedic Surgery of the Spine; ATTEND Orthopaedic Surgery Orthopaedic Surgery of the Spine

== ENCOUNTER 2017-11-12 05:28 | Inpatient (IN) ==
[2017-11-12] MEDS ORDERED: Vancomycin Inj 1,000 MG in Sodium Chlor 0.9% Inj 250 ML IV.SIG SCH (06:00)
[2017-11-12] MEDS ORDERED: Metoprolol Tartrate 25 MG Tablet PO ONE (06:00)
[2017-11-12] MEDS ORDERED: ceFAZolin 2 GM Premix Inj 2 GM/50 ML PIGGYBACK IV.SIG SCH (06:00)
[2017-11-12] MEDS ORDERED: Sodium Chlor 0.9% Inj 500 ML IV.CONT ONE (06:00)
[2017-11-12] MEDS ORDERED: Chlorhexidine 4% Topical 120 APPLIC/120 ML Bottle TOPICAL SCH (06:00)
[2017-11-12] MEDS ORDERED: Chlorhexidine Gluconate 2% 1 Pack (2 Cloths) TOPICAL ONE (06:00)
[2017-11-12] MEDS ORDERED: Bupivacaine/Epinephrine Inj 0.25% 50 ML Vial ONE (06:26)
[2017-11-12] MEDS ORDERED: Betamethasone Sod Phos/Acetate Inj 30 MG/5 ML Vial IM ONE (06:26)
[2017-11-12] MEDS ORDERED: Gelatin Size 100 Topical Foam ONE (06:27)
[2017-11-12] MEDS ORDERED: Famotidine PF Inj 20 MG/2 ML Vial ONE (06:59)
[2017-11-12] MEDS ORDERED: Glycopyrrolate Inj 1 MG/5 ML Syringe IV.PUSH ONE (07:15)
[2017-11-12] MEDS ORDERED: Lidocaine PF 1% Inj 5 ML Syringe OTHER ONE (07:15)
[2017-11-12] MEDS ORDERED: Neostigmine Inj 5 MG/5 ML Syringe IV.PUSH ONE (07:15)
[2017-11-12 08:28] LABS: Baso % (Auto) 0.1 % (0.0-2.0); Eos # (Auto) 0.1 th/mm3 (0.0-0.4); Eos % (Auto) 2.9 % (0.0-4.0); Hematocrit 28.1 % (35.0-46.0); Hemoglobin 9.1 gm/dL (11.6-15.3); Lymph # (Auto) 1.1 th/mm3 (1.0-4.8); Lymph % (Auto) 28.5 % (9.0-44.0); Mean Corpuscular HGB Conc 32.5 % (32.0-36.0); Mean Corpuscular Hemoglobin 27.6 pg (27.0-34.0); Mean Corpuscular Volume 84.9 fL (80.0-100.0); Mean Platelet Volume 8.5 fL (7.0-11.0); Mono # (Auto) 0.4 th/mm3 (0.0-0.9); Mono % (Auto) 10.7 % (0.0-8.0); Neut # (Auto) 2.2 th/mm3 (1.8-7.7); Neut % (Auto) 57.8 % (16.0-70.0); Platelet Count 125 th/mm3 (150-450); White Blood Count 3.9 th/mm3 (4.0-11.0)
[2017-11-12 08:36] LABS: INR 1.1 Ratio; Prothrombin Time 10.7 sec (9.8-11.6)
[2017-11-12] MEDS ORDERED: Post-op Orders (for Pharmacy) OTHER STA (09:54)
[2017-11-12] MEDS ORDERED: Morphine Inj 4 MG/ML Vial IV.PUSH PRN (09:54)
[2017-11-12] MEDS ORDERED: Bisacodyl 10 MG Supp RECTAL PRN (09:54)
--- NOTE | 2017-11-12 09:54 | P.OP ---
- Preoperative Diagnosis (1) Lumbar spinal stenosis Preoperative Diagnosis: History of laminectomy L2-3 left. History of lumbar spinal fusion, L2-3. History of placement of interbody cage left, L2-3. Status post posterior spinal instrumentation L2-3 Lumbar spinal stenosis L 2-3, right. Right L3 radiculopathy Postoperative Diagnosis: Same Date of procedure: 11/12/17 Procedure: Revision lumbar laminectomy L2-3, right. Revision of lumbar instrumentation, L3, right. Additional bone grafting, lateral transverse process right L2-3 Anesthesia: GETA Surgeon: Leroy Gates MD Clinical Partner: TOMASA Christine Operation and Findings: EBL: 200 ml NOTE: Ginette Christine PA-C was present for the entire surgical procedure as my printing bindery assistant. In my medical opinion her skill and care was necessary for proper management of this patient INDICATIONS: This patient is an 82-year-old female status post previous laminectomy from the left with a partial bilateral at the L2-3 level for purpose of severe spinal stenosis with left leg pain and acute scoliosis. The patient left leg pain completely abated but the patient began developing increasing right leg pain. Investigative studies shows evidence of a lateral recess stenosis at the L2-3 on the right side. The L3 screw is along the medial edge of the pedicle. This patient presents for the above procedure to decompress the spinal canal, L3 nerve root and to ensure that the L3 screw is in proper position. INSTRUMENTATION: Doron leal PROCEDURE: The patient brought to the operating room and anesthetized the supine position. The patient positioned prone on the Alfonzo frame on the Darinel table. All pressure points are protected. The back was scrubbed with alcohol followed by Hibiclens followed by ChloraPrep and draped sterilely and antibiotics were given within a routine time window. A timeout was done. Lateral radiographic images used to identify the proper level for the procedure. Compared care for the preoperative studies. Skin markings were made anticipating surgical treatment. The previous incision on the right side was opened. The fascia was opened longitudinally. An off midline fascial splitting incision was made deep. The pedicle screws were identified. Dissection continued over the lamina to the right side at that level. The previous decompression had been from the left side with a partial bilateral decompression. Deep retractors were positioned. The locking screw was removed from the top of each screw and the svitlana removed. Each screw was charged with electric current and there were no abnormal potentials in either lower extremity. The L3 screw was removed. Under the microscope a revision right laminectomy was accomplished. There is a moderate to advanced lateral recess stenosis involving mostly ligamentous flavum and some overgrowth from the facet joint was found. At the pedicle was found. We could see that there was a small defect along the medial edge of the pedicle. The L3 nerve root was coming across this without any evidence of compression. The decompression was felt to be very satisfactory. Under fluoroscopic imaging, an additional pathway for the screw was created to ensure that it was completely within the pedicle and not in any violation of the epidural space. Screw position was felt to be very satisfactory. This was checked in the AP and lateral plane without difficulty. We used a 50 mm screw where the previous screw was a 45 mm x 6.0 mm screw. The previous svitlana was reattached. The system was tightened according to drywall carrier's recommendation. The wound was irrigated copiously. Bone graft was placed in the lateral gutters between L2 and L3. Vancomycin powder was utilized. This was closed in layers with #1 Vicryl, 2-0 Vicryl and running intradermal 3-0 Vicryl followed by Steri-Strips and benzoin. Intraoperative radiographs were obtained. No complication was appreciated. The patient had a sterile dressing applied. The patient was awakened and taken to recovery room in satisfactory condition. FINDINGS: There was evidence of a moderate to high-grade lateral recess stenosis just below the disc space of L2-3. Screw position was satisfactory. No complication was appreciated.
--- NOTE | 2017-11-12 10:03 | P.DCO ---
- Physical Therapy Physical Therapy: Gait training (3 times per week for 2 weeks) S/P Spinal Fusion: Gait training with walker - Nursing RN: 3 days/week x 2 weeks Nursing: Dressing changes (Dry dressing daily) - Certification Need for Home Health services: I have seen patient Rosalie Christiansen on 11/12/17. My clinical findings support the need for the requested home health care services because: Need for Home Health Services: Limited ability to care for self, High risk of falls Homebound Certification: I certify that my clinical findings support that this patient is homebound because: Homebound Certification: Post-op weakness
--- NOTE | 2017-11-12 10:07 | XR ---
EXAM DATE: 11/12/2017 12:00 AM EDT AGE/SEX: 82 years / Female INDICATIONS: Post-op right L2-L3 laminectomy. Revision instrumentation L2-L3. CLINICAL DATA: This is the patient's subsequent encounter. Patient reports that signs and symptoms h ave been present for 1 day and indicates a pain score of Nonresponsive. MEDICAL/SURGICAL HISTORY: Non-responsive. Fusion, lumbar. Kyphoplasty. [place] [facility] [place] [facility], 10/15/2017. . FINDINGS: AP and lateral coned down views of the lumbar spine were obtained. This and demonstrates fusion upper lumbar spine with bilateral pedicle screws and posterior fixation rods. There is mild retrolisthesis of vertebral body again noted without change. Interbody graft is noted with metallic markers. The pa tient is status post kyphoplasty with high density in the upper vertebral body. The upper portion of a lower fusion is visualized as well. The ribs and lower lumbar spine not included on this study so e xact localization is difficult. CONCLUSION: No significant change in the appearance of the upper lumbar fusion. Electronically signed by: Andrew Rodriguez MD 11/12/2017 10:06 AM EDT
[2017-11-12] MEDS ORDERED: fentaNYL Citrate Inj 100 MCG/2 ML Ampul ONE (10:29)
[2017-11-12] MEDS ORDERED: *morphine SULFATE 10 MG/ML PERIprocedure ONLY ONE ×3 (10:39→11:30)
[2017-11-12] MEDS ORDERED: *Ondansetron Inj 4 MG/2 ML Vial PERIprocedural Use ONLY ONE (11:19)
[2017-11-12] MEDS ORDERED: HYDROmorphone PF Inj 2 MG/ML Vial ONE (11:56)
[2017-11-12] MEDS ORDERED: Temazepam 15 MG Capsule PO PRN (21:00)
[2017-11-12] MEDS: Multivitamin/Minerals Therapeutic Tablet PO SCH (21:17)
[2017-11-12] MEDS: Senna/Docusate Sodium 8.6/50 MG Tablet PO SCH (21:17)
[2017-11-12] MEDS: Carvedilol 12.5 MG Tablet PO SCH (21:17)
--- NOTE | 2017-11-12 21:39 | P.CONIM ---
History of Present Illness Primary Care Provider: Radha Amaya MD Family Provider: Family history Chief Complaint: Lower back pain History of Present Illness: This patient is an 82-year-old female with a diagnosis of hypertension dyslipidemia gastroesophageal reflux disease and chronic back pain. The patient was admitted under the orthopedic service for L2-L3 laminectomy decompression with revision of instrumentation. The patient recently had a similar procedure done however continue to have back pain. Patient currently complains of lower back pain which is well tolerated with p.o. pain medications. She denies having any fevers or chills, no chest pain, no shortness of breath, no abdominal pain, no diarrhea, no dysuria. She does not have any other complaints. I was consulted for medical management of this patient. Family history hypertension in her father. Review of Systems All other systems reviewed negative except as stated in HPI PMFSH - History History Provided By: Patient, Significant Other - Medical History Medical History: Medical History (Last Reviewed 11/12/17 @ 21:34 by Josie Patel MD) Presence of orthopedic joint implant (Acute) Back pain Edema Full dentures GERD (gastroesophageal reflux disease) H/O: hysterectomy Hiatal hernia High cholesterol Hypertension - Surgical History Surgical History: Surgical History (Last Reviewed 11/12/17 @ 21:34 by Josie Patel MD) History of bladder suspension procedure History of carpal tunnel surgery History of esophagogastroduodenoscopy (EGD) History of heart artery stent History of lumbar laminectomy History of revision of total knee arthroplasty History of total knee replacement History of total left hip replacement Hx of appendectomy Hx of cataract surgery Hx of cholecystectomy Hx of rotator cuff surgery - Tobacco History Second Hand Smoke Exposure: No Smoking Status: Never smoker - Alcohol History How Often Do You Have a Drink Containing Alcohol: Never - Substance Use History Substance History: No History of Abuse - Travel History Recent Travel in the [place] Within the Last 8 Weeks: No Recent Travel Out of the Country Within the Last 8 Weeks: No - Immunization History Tetanus Immunization: Unsure Hx Influenza Vaccine This Season: No Medications and Allergies Active Medications: Active Medications Hydrocodone Bitart/Acetaminophen ([place] 7.5/325) 1 tab PO Q4H PRN PRN Reason: PAIN LESS THAN 5 ON SCALE Last Admin: 11/12/17 21:18 Dose: 1 tab Hydrocodone Bitart/Acetaminophen ([place] 7.5/325) 2 tab PO Q4H PRN PRN Reason: PAIN SCALE 5 TO 10 Al Hydroxide/Mg Hydroxide (Milk Of Magnesia Liq) 30 ml PO BID PRN PRN Reason: Mild Constipation Atorvastatin Calcium (Lipitor) 80 mg PO DAILY [facility] Bisacodyl (Dulcolax Supp) 10 mg RECTAL DAILY PRN PRN Reason: SEVERE CONSITIPATION Carvedilol (Coreg) 12.5 mg PO BID [facility] Last Admin: 11/12/17 21:17 Dose: 12.5 mg Chlorhexidine Gluconate (Hibiclens 4% Topical) 1 applicatio TOPICAL ONCE [facility] Stop: 11/16/17 05:59 Diphenhydramine HCl (Benadryl) 25 mg PO Q6H PRN PRN Reason: ITCHING Lactated Ringer's (Lr 1000 Ml Inj) 1,000 mls @ 30 mls/hr IV.CONT .Q24H ONE Stop: 11/13/17 05:59 Last Infusion: 11/12/17 10:16 Dose: Infused Sodium Chloride (Ns Inj) 500 mls @ 30 mls/hr IV.CONT .[id number] ONE Stop: 11/12/17 22:39 Last Admin: 11/12/17 07:09 Dose: Not Given Cefazolin Sodium/Dextrose (Ancef 2 Gm Premix Inj) 2 gm in 50 mls @ 100 mls/hr IV.SIG SILK WINDING MACHINE OPERATOR [facility] Stop: 11/16/17 05:59 Last Infusion: 11/12/17 09:07 Dose: Infused Vancomycin HCl 1,000 mg/ (Sodium Chloride) 250 mls @ 250 mls/hr IV.SIG SILK WINDING MACHINE OPERATOR [facility] Stop: 11/15/17 05:56 Last Infusion: 11/12/17 09:05 Dose: Infused Cefazolin Sodium 1,000 mg/ (Sodium Chloride) 100 mls @ 200 mls/hr IV.SIG Q6H [facility] Stop: 11/13/17 02:29 Last Infusion: 11/12/17 14:07 Dose: Infused Lactated Ringer's (Lr 1000 Ml Inj) 1,000 mls @ 80 mls/hr IV.CONT .[id number] [facility] Last Admin: 11/12/17 11:00 Dose: 80 mls/hr Lactulose (Lactulose Liq) 30 ml PO DAILY PRN PRN Reason: SEVERE CONSITIPATION Miscellaneous Information ([facility] [place] Nursing Information) 1 each OTHER UNSCH PRN PRN Reason: SEE LABEL COMMENTS Stop: 11/13/17 10:23 Morphine Sulfate (Morphine Inj) 4 mg IV.PUSH Q2H PRN PRN Reason: BREAKTHROUGH PAIN Multivitamins/Minerals (Theragran-M) 1 tab PO BID [facility] Stop: 01/11/18 20:59 Last Admin: 11/12/17 21:17 Dose: 1 tab Ondansetron HCl (Zofran Inj) 4 mg IV.PUSH Q6H PRN PRN Reason: NAUSEA OR VOMITING Pantoprazole Sodium (Protonix) 20 mg PO DAILY [facility] Senna/Docusate Sodium (Zhanna-Colace) 1 tab PO BID [facility] Last Admin: 11/12/17 21:17 Dose: 1 tab Sennosides (Senokot) 17.2 mg PO BID PRN PRN Reason: Moderate Constipation Sodium Chloride (Ns Flush) 2 ml IV.FLUSH BID [facility] Sodium Chloride (Ns Flush) 2 ml IV.FLUSH PRN PRN PRN Reason: FLUSH AFTER USING IV ACCESS Temazepam (Restoril) 15 mg PO HS PRN PRN Reason: INSOMNIA Allergies Allergy/AdvReac Type Severity Reaction Status Date / Time codeine Allergy Severe Nausea/Vomi Verified 11/12/17 06:30 ting penicillin G Allergy Severe RASH Verified 11/12/17 06:30 risedronate sodium Allergy Severe Nausea/Vomi Verified 11/12/17 06:30 ting ibuprofen [From Advil] AdvReac Nausea/Vomi Verified 11/12/17 06:30 ting Home Medications Medication Instructions Recorded Confirmed Type acetaminophen [Tylenol Extra 1,000 mg PO Q6H PRN 10/13/17 11/12/17 History Strength] aspirin [Aspirin Low Dose] 81 mg PO DAILY 10/13/17 11/12/17 History atorvastatin 80 mg PO DAILY 10/13/17 11/12/17 History carvedilol 12.5 mg PO BID 10/13/17 11/12/17 History esomeprazole magnesium [Nexium] 20 mg PO DAILY 10/13/17 11/12/17 History estradiol 1 mg PO DAILY 10/13/17 11/12/17 History hydrocodone-acetaminophen [[place]] 0.5 tab PO Q4-6H PRN 10/13/17 11/12/17 History niacin 500 mg PO DAILY 10/13/17 11/12/17 History Exam Vital signs: Vital Signs 11/12/17 06:47 11/12/17 10:21 11/12/17 10:30 Temperature 97.8 F 97.4 F L Pulse Rate 73 62 68 Respiratory Rate 20 16 16 Blood Pressure 156/76 H 190/84 H 181/74 H Pulse Oximetry 98 100 99 11/12/17 10:45 11/12/17 11:00 11/12/17 11:30 Temperature Pulse Rate 74 64 72 Respiratory Rate 16 16 16 Blood Pressure 181/77 H 167/74 H 156/85 H Pulse Oximetry 99 98 100 11/12/17 12:00 11/12/17 12:30 11/12/17 13:34 Temperature 97.3 F L Pulse Rate 72 62 81 Respiratory Rate 16 16 20 Blood Pressure 175/73 H 163/64 H 189/77 H Pulse Oximetry 98 99 100 11/12/17 16:00 11/12/17 16:28 11/12/17 20:00 Temperature 97.9 F 98.7 F Pulse Rate 71 72 Respiratory Rate 20 18 Blood Pressure 172/74 H 148/55 H Pulse Oximetry 100 100 99 Intake & Output 11/12/17 11/12/17 11/13/17 06:59 18:59 06:59 Intake Total 1900 / 1900 Output Total 704 / 704 Balance 1196 / 1196 Weight 87.1 kg 87.1 kg Intake: IV 1400 / 1400 LR 1000 mL Inj 1,000 ML @ 30 1000 / 1000 mls/hr IV.CONT .Q24H ONE Rx#: [id number] Vancomycin Inj 1,000 MG In NS 250 / 250 Inj 250 ML @ 250 mls/hr IV.SIG SILK WINDING MACHINE OPERATOR [facility] Rx#:[id number] Ancef 2 GM Premix Inj 2 gm In 50 / 50 50 ml @ 100 mls/hr IV.SIG SILK WINDING MACHINE OPERATOR [facility] Rx#:[id number] Ancef Inj 1,000 MG In NS Inj 100 / 100 100 ML @ 200 mls/hr IV.SIG Q6H [facility] Rx#:[id number] Anesthesia Amount 500 / 500 Output: Urine 504 / 504 Estimated Blood Loss 200 / 200 Other: Date of Last Bowel Movement 11/11/17 Weight On Admission 87.1 kg Narrative: General patient in mild distress complaining of lower back pain. HEENT extraocular movements are intact, clear oropharyngeal mucosa, no JVD Cardiovascular S1-S2 audible, RRR, no murmurs rubs or gallops Respiratory clear to auscultation bilaterally Abdomen soft, nontender, nondistended, normal bowel sounds, patient complains of lower back pain she is status post laminectomy L2-L3 Extremities no edema 2+ distal pulses in bilateral upper and lower extremities Neuro patient moves all 4 extremities sensation is intact bilaterally Results - Labs CBC & Chem 7: 11/12/17 07:56 Labs: Laboratory Results - last 24 hr 11/12/17 11/12/17 11/12/17 07:56 07:56 07:56 WBC 3.9 L RBC 3.30 L Hgb 9.1 L Hct 28.1 L MCV 84.9 MCH 27.6 MCHC 32.5 RDW 15.0 Plt Count 125 L MPV 8.5 Neut % (Auto) 57.8 Lymph % (Auto) 28.5 [place] % (Auto) 10.7 H Eos % (Auto) 2.9 Baso % (Auto) 0.1 Neut # (Auto) 2.2 Lymph # (Auto) 1.1 [place] # (Auto) 0.4 Eos # (Auto) 0.1 Baso # (Auto) 0.0 WBC Differential . Differential Comment Auto diff final PT 10.7 INR 1.1 APTT 25.5 Blood Type Antibody Screen MTS Gel Crossmatch Bld Prod Order Comment 11/12/17 07:56 WBC RBC Hgb Hct MCV MCH MCHC RDW Plt Count MPV Neut % (Auto) Lymph % (Auto) [place] % (Auto) Eos % (Auto) Baso % (Auto) Neut # (Auto) Lymph # (Auto) [place] # (Auto) Eos # (Auto) Baso # (Auto) WBC Differential Differential Comment PT INR APTT Blood Type A Positive Antibody Screen Negative MTS Gel Crossmatch See Detail Bld Prod Order Comment - Imaging Impressions Lumbar Spine X-Ray 11/12/17 00:00 CONCLUSION: No significant change in the appearance of the upper lumbar fusion. Assessment and Plan - Plan This patient is an 82-year-old female with a past medical history of hypertension gastroesophageal reflux disease dyslipidemia and lumbar spinal stenosis status post L2-L3 laminectomy and revision of instrumentation. I was consulted to evaluate the patient for medical management. 1. L2-L3 laminectomy and revision of instrumentation Patient does complain of lower back pain which is well tolerable with p.o. and IV pain medications. Continue pain medications as needed. Continue to follow-up with orthopedics for further management recommendations regarding the laminectomy. 2. Hypertension The patient is currently on Coreg 12.5 mg p.o. twice daily. I started her on amlodipine 5 mg p.o. daily. I ordered a.m. labs which can be followed up. If the patient continues to be hypertensive amlodipine and/or Coreg can be increased. Her blood pressure medications should be adjusted as needed. 3. Dyslipidemia Continue statin 4. Gastroesophageal reflux disease Continue Protonix The patient should be placed on DVT prophylaxis as soon as orthopedics is okay with it.
[2017-11-13] MEDS: amLODIPine 5 MG Tablet PO SCH ×2 (00:56→08:33)
[2017-11-13 04:13] VITALS: RESP 16
--- NOTE | 2017-11-13 07:58 | P.PNOP ---
Subjective Interval history: Back pain present. She still has some right thigh pain to the knee but it resolves when she is 'still and in bed'. She denies any new leg pain. No CP or SOB. Physical Exam Vital signs: Vital Signs 11/12/17 10:21 11/12/17 10:30 11/12/17 10:45 Temperature 97.4 F L Pulse Rate 62 68 74 Respiratory Rate 16 16 16 Blood Pressure 190/84 H 181/74 H 181/77 H Pulse Oximetry 100 99 99 11/12/17 11:00 11/12/17 11:30 11/12/17 12:00 Temperature Pulse Rate 64 72 72 Respiratory Rate 16 16 16 Blood Pressure 167/74 H 156/85 H 175/73 H Pulse Oximetry 98 100 98 11/12/17 12:30 11/12/17 13:34 11/12/17 16:00 Temperature 97.3 F L 97.9 F Pulse Rate 62 81 71 Respiratory Rate 16 20 20 Blood Pressure 163/64 H 189/77 H 172/74 H Pulse Oximetry 99 100 100 11/12/17 16:28 11/12/17 20:00 11/13/17 00:00 Temperature 98.7 F 98.2 F Pulse Rate 72 78 Respiratory Rate 18 18 Blood Pressure 148/55 H 136/63 Pulse Oximetry 100 99 98 11/13/17 04:00 Temperature 98.4 F Pulse Rate 72 Respiratory Rate 16 Blood Pressure 169/73 H Pulse Oximetry 100 Intake & Output 11/12/17 11/13/17 11/13/17 18:59 06:59 18:59 Intake Total 1900 / 1900 200 / 200 Output Total 704 / 704 1999 Balance 1196 / 1196 -1800 / -1800 Weight 87.1 kg 87.1 kg Intake: IV 1400 / 1400 200 / 200 LR 1000 mL Inj 1,000 ML @ 30 1000 / 1000 mls/hr IV.CONT .Q24H ONE Rx#: [id number] Vancomycin Inj 1,000 MG In NS 250 / 250 Inj 250 ML @ 250 mls/hr IV.SIG POKE IN [facility] Rx#:[id number] Ancef 2 GM Premix Inj 2 gm In 50 / 50 50 ml @ 100 mls/hr IV.SIG POKE IN [facility] Rx#:[id number] Ancef Inj 1,000 MG In NS Inj 100 / 100 200 / 200 100 ML @ 200 mls/hr IV.SIG Q6H [facility] Rx#:[id number] Anesthesia Amount 500 / 500 Output: Urine 504 / 504 1999 / 1999 Estimated Blood Loss 200 / 200 Other: # Voids 6 Date of Last Bowel Movement 11/11/17 11/11/17 Narrative: Walking in room w walker NAD L/S Dressing c/d/i, minimal SS drainage, mild spasm, no erythema +motor at distal, +sens (some burning pain R thigh w walking) Neg homans bilaterally Results - Labs CBC & Chem 7: 11/12/17 07:56 Laboratory Results - last 24 hr 11/12/17 11/12/17 11/12/17 07:56 07:56 07:56 WBC 3.9 L RBC 3.30 L Hgb 9.1 L Hct 28.1 L MCV 84.9 MCH 27.6 MCHC 32.5 RDW 15.0 Plt Count 125 L MPV 8.5 Neut % (Auto) 57.8 Lymph % (Auto) 28.5 [place] % (Auto) 10.7 H Eos % (Auto) 2.9 Baso % (Auto) 0.1 Neut # (Auto) 2.2 Lymph # (Auto) 1.1 [place] # (Auto) 0.4 Eos # (Auto) 0.1 Baso # (Auto) 0.0 WBC Differential . Differential Comment Auto diff final PT 10.7 INR 1.1 APTT 25.5 Blood Type Antibody Screen MTS Gel Crossmatch Bld Prod Order Comment 11/12/17 07:56 WBC RBC Hgb Hct MCV MCH MCHC RDW Plt Count MPV Neut % (Auto) Lymph % (Auto) [place] % (Auto) Eos % (Auto) Baso % (Auto) Neut # (Auto) Lymph # (Auto) [place] # (Auto) Eos # (Auto) Baso # (Auto) WBC Differential Differential Comment PT INR APTT Blood Type A Positive Antibody Screen Negative MTS Gel Crossmatch See Detail Bld Prod Order Comment - Imaging Impressions Lumbar Spine X-Ray 11/12/17 00:00 CONCLUSION: No significant change in the appearance of the upper lumbar fusion. - Procedures Revision Right laminectomy L23, revision instrumentation L23, additional bone grafting Assessment and Plan - Ortho Post Op Day # 1 - Assessment and Plan pod#1 s/ Rev Lami L23, revision instrumentation L23 Pain moderately controlled. Right thigh pain still present but resolves completely when at rest. Ok to d/c home this afternoon. No dressing changes unless saturated. Out of bed with brace for 8 weeks. One time pain Rx from us as pt gets chronic meds from Dr. Amaya. F/U in 2 weeks as scheduled.
[2017-11-13] MEDS: Senna/Docusate Sodium 8.6/50 MG Tablet PO SCH (08:33)
[2017-11-13] MEDS: Carvedilol 12.5 MG Tablet PO SCH (08:33)
[2017-11-13] MEDS: Multivitamin/Minerals Therapeutic Tablet PO SCH (08:33)
[2017-11-13] MEDS ORDERED: Pantoprazole Sodium 20 MG DR Tablet PO SCH (09:00)
[2017-11-13 12:27] VITALS: BP 119/58; PULSE 62; TEMP 98.3; O2SAT 99
== END 2017-11-13 15:56 | disposition home health service (06) ==
LOC: HSDI 05:28 → N06 13:09
PROVIDERS: ADMIT Orthopaedic Surgery Orthopaedic Surgery of the Spine; ATTEND Orthopaedic Surgery Orthopaedic Surgery of the Spine

== ENCOUNTER 2017-12-21 13:11 | Inpatient (IN) ==
[2017-12-21] MEDS ORDERED: Morphine Inj 4 MG/ML Vial IV.PUSH ONE (13:40)
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
[2017-12-21 15:47] LABS: Baso % (Auto) 0.1 % (0.0-2.0); Eos # (Auto) 0.1 th/mm3 (0.0-0.4); Eos % (Auto) 2.2 % (0.0-4.0); Hematocrit 28.1 % (35.0-46.0); Hemoglobin 8.8 gm/dL (11.6-15.3); Lymph # (Auto) 1.3 th/mm3 (1.0-4.8); Lymph % (Auto) 22.6 % (9.0-44.0); Mean Corpuscular HGB Conc 31.3 % (32.0-36.0); Mean Corpuscular Hemoglobin 25.2 pg (27.0-34.0); Mean Corpuscular Volume 80.6 fL (80.0-100.0); Mono # (Auto) 0.7 th/mm3 (0.0-0.9); Mono % (Auto) 12.6 % (0.0-8.0); Neut # (Auto) 3.7 th/mm3 (1.8-7.7); Neut % (Auto) 62.5 % (16.0-70.0); Platelet Count 166 th/mm3 (150-450); Red Blood Count 3.48 mil/mm3 (4.00-5.30); Red Cell Distribution Width 14.6 % (11.6-17.2); White Blood Count 5.8 th/mm3 (4.0-11.0)
[2017-12-21] MEDS ORDERED: Acetaminophen 325 MG Tablet PO PRN (15:48)
[2017-12-21] MEDS ORDERED: Bisacodyl 10 MG Supp RECTAL PRN (15:48)
[2017-12-21 15:51] LABS: Potassium 3.7 meq/L (3.5-5.1)
[2017-12-21 15:54] LABS: Calcium 8.9 mg/dL (8.5-10.1)
[2017-12-21 16:05] LABS: Bilirubin,Urine Negative (Negative); Clarity,Urine Cloudy (Clear); Color,Urine Yellow (Yellw/Straw); Glucose,Urine (UA) Negative (Negative); Leukocyte Esterase,Urine Large (Negative); Nitrite,Urine Positive (Negative); Urobilinogen,Urine 0.2 mg/dL (Less than 2)
[2017-12-21 16:10] LABS: Amorphous Sediment,Urine Few /hpf; Bacteria,Urine Many /hpf; Squamous Epithelial Cell,Urine Greater than 10 /hpf (0-5); WBC,Urine 51-189 /hpf (0-5)
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
[2017-12-22 06:08] LABS: Baso % (Auto) 0.2 % (0.0-2.0); Eos # (Auto) 0.1 th/mm3 (0.0-0.4); Eos % (Auto) 1.8 % (0.0-4.0); Hematocrit 24.7 % (35.0-46.0); Lymph # (Auto) 1.2 th/mm3 (1.0-4.8); Mean Corpuscular HGB Conc 32.3 % (32.0-36.0); Mean Corpuscular Volume 80.5 fL (80.0-100.0); Mean Platelet Volume 8.4 fL (7.0-11.0); Mono # (Auto) 0.7 th/mm3 (0.0-0.9); Mono % (Auto) 11.3 % (0.0-8.0); Neut # (Auto) 3.8 th/mm3 (1.8-7.7); Neut % (Auto) 65.7 % (16.0-70.0); Platelet Count 153 th/mm3 (150-450); Red Blood Count 3.07 mil/mm3 (4.00-5.30); Red Cell Distribution Width 14.5 % (11.6-17.2); White Blood Count 5.8 th/mm3 (4.0-11.0)
[2017-12-22 06:12] LABS: Chloride 105 meq/L (98-107); Potassium 3.6 meq/L (3.5-5.1); Sodium 140 meq/L (136-145)
[2017-12-22 06:16] LABS: Anion Gap 8 meq/L (5-15); Blood Urea Nitrogen 16 mg/dL (7-18); Carbon Dioxide 27.3 meq/L (21.0-32.0); Glucose,Random 97 mg/dL (74-106)
[2017-12-22 06:19] LABS: Glomerular Filtration Rate Greater Than 89 mL/min (>89)
[2017-12-22] MEDS ORDERED: Acetaminophen 500 MG Tablet PO PRN (10:06)
[2017-12-22] MEDS ORDERED: ALPRAZolam 0.25 MG Tablet PO PRN (10:33)
--- NOTE | 2017-12-22 10:33 | P.PNIM ---
Subjective Interval history: Follow up right ankle fracture. Patient seen and examined, sitting in chair with present complaints of pain in right lower extremity. Denies any acute events overnight. VSS. Anemia noted, will add iron profile. No previous h/o anemia. Physical Exam Vital signs: Vital Signs 12/21/17 13:13 12/21/17 17:35 12/21/17 20:00 Temperature 99.6 F 97.8 F Pulse Rate 74 58 L 70 Respiratory Rate 18 20 18 Blood Pressure 110/66 113/47 L 130/59 L Pulse Oximetry 96 96 12/22/17 00:00 12/22/17 08:00 Temperature 96.0 F L 98.3 F Pulse Rate 80 87 Respiratory Rate 18 17 Blood Pressure 145/65 H 194/74 H Pulse Oximetry 96 96 Intake & Output 12/21/17 12/22/17 12/22/17 18:59 06:59 18:59 Intake Total 100 / 100 0 / 0 Output Total 300 / 300 Balance 100 / 100 -300 / -300 Weight 86.3 kg 87.8 kg Intake: IV 100 / 100 Rocephin Inj 1,000 MG In NS Inj 100 / 100 100 ML @ 200 mls/hr IV.SIG Q24H LORE Rx#:[id number] Oral 0 / 0 Output: Urine 300 / 300 Other: Date of Last Bowel Movement 12/21/17 12/21/17 Weight On Admission 86.3 kg Narrative: GENERAL: Well-developed, well-nourished, in no acute distress. alert and orientated HEENT: Head is normocephalic without any lesions or masses noted. Facial features are symmetric. Eyes: Pupils equal round reactive to light. Extraocular muscles are intact. Conjunctivae were clear. Oropharyngeal: Pharynx without any erythema edema. Tongue is midline without deviation. Buccal mucosa is moist without any masses or lesions NECK: Supple without any masses. Trachea midline no deviation. No JVD, no bruits are appreciated CARDIAC: Regular rhythm, regular rate. S1/S2 are heard. No murmurs gallops or rubs. LUNGS: Clear to auscultation bilaterally. No wheeze, rhonchi or rales. No use of accessory muscles on inspiration or expiration. ABDOMEN: Soft, nontender. Nondistended. Bowel sounds heard in all 4 quadrants. No organomegaly or masses. Negative rebound, negative guarding EXTREMITIES: No edema, pulses are equal bilaterally. No cyanosis or clubbing NEUROLOGY: Mood and affect appear appropriate. Cranial nerves II through XII grossly intact. Muscle strength 5/5 in upper and lower extremities bilaterally. Deep tendon reflexes are 2+ in upper and lower extremities bilaterally. LEFT LOWER EXTREMITY: Bipin bandage wrapped from the knee to the ankle, sensation intact. RIGHT LOWER EXTREMITIES: Presently the patient is having a splint put in place. Results - Labs CBC & Chem 7: 12/22/17 05:15 12/22/17 05:15 Laboratory Results - last 24 hr 12/21/17 12/21/17 12/21/17 15:00 15:00 15:40 CBC w Diff Auto diff final WBC 5.8 RBC 3.48 L Hgb 8.8 L Hct 28.1 L MCV 80.6 MCH 25.2 L MCHC 31.3 L RDW 14.6 Plt Count 166 MPV 9.0 Neut % (Auto) 62.5 Lymph % (Auto) 22.6 [place] % (Auto) 12.6 H Eos % (Auto) 2.2 Baso % (Auto) 0.1 Neut # (Auto) 3.7 Lymph # (Auto) 1.3 [place] # (Auto) 0.7 Eos # (Auto) 0.1 Baso # (Auto) 0.0 WBC Differential . Differential Comment . Sodium 135 L Potassium 3.7 Chloride 102 Carbon Dioxide 26.0 Anion Gap 7 BUN 22 H Creatinine 0.78 Estimated GFR 71 L Random Glucose 101 Calcium 8.9 Ur Collection Type Clean catch Urine Color Yellow Urine Clarity Cloudy H Urine pH 6.0 Ur Specific [place] 1.010 Urine Protein Trace Urine Glucose (UA) Negative Urine Ketones Negative Urine Occult Blood Moderate H Urine Nitrate Positive H Urine Bilirubin Negative Urine Urobilinogen 0.2 Ur Leukocyte Esterase Large H Urine RBC 15-50 H Urine WBC 51-189 H Urine WBC Clumps Moderate H Ur Squamous Epith Cells Greater than 10 H Amorphous Sediment Few H Urine Bacteria Many H Micro UA Comment Culture indicated Ur Microscopic Review Microscopic reviewed Urine Collection Time 1540 12/22/17 12/22/17 05:15 05:15 CBC w Diff Auto diff final WBC 5.8 RBC 3.07 L Hgb 8.0 L Hct 24.7 L MCV 80.5 MCH 26.0 L MCHC 32.3 RDW 14.5 Plt Count 153 MPV 8.4 Neut % (Auto) 65.7 Lymph % (Auto) 21.0 [place] % (Auto) 11.3 H Eos % (Auto) 1.8 Baso % (Auto) 0.2 Neut # (Auto) 3.8 Lymph # (Auto) 1.2 [place] # (Auto) 0.7 Eos # (Auto) 0.1 Baso # (Auto) 0.0 WBC Differential . Differential Comment . Sodium 140 Potassium 3.6 Chloride 105 Carbon Dioxide 27.3 Anion Gap 8 BUN 16 Creatinine 0.56 Estimated GFR Greater than 89 Random Glucose 97 Calcium 9.0 Ur Collection Type Urine Color Urine Clarity Urine pH Ur Specific [place] Urine Protein Urine Glucose (UA) Urine Ketones Urine Occult Blood Urine Nitrate Urine Bilirubin Urine Urobilinogen Ur Leukocyte Esterase Urine RBC Urine WBC Urine WBC Clumps Ur Squamous Epith Cells Amorphous Sediment Urine Bacteria Micro UA Comment Ur Microscopic Review Urine Collection Time - Imaging Impressions Pelvis CT 12/21/17 13:40 CONCLUSION: 1. Small low density collection in the posterior left hip region. 2. No definite acute bony pelvic injury Assessment and Plan - Assessment (1) Urinary tract infection Code(s): N39.0 - Urinary tract infection, site not specified Status: Acute (2) Fracture of medial malleolus Code(s): S82.53XA - Displaced fracture of medial malleolus of unspecified tibia , initial encounter for closed fracture Status: Acute (3) Failure of outpatient treatment Code(s): Z78.9 - Other specified health status Status: Acute - Plan This is an 82-year-old female patient with: Right medial malleolus fracture -Patient is with insufficient pain management and unable to ambulate. -Patient did fail outpatient treatment, unable to care for herself at home due to her clinical condition. -Podiatry consulted, input and recommendations pending. -Continue pain control, Morphine IV for breakthrough pain. Continue [place] as needed. -Physical therapy evaluation, awaiting input and recommendations. -Occupational Therapy evaluation pending. -Case management consulted for acute rehab versus SNF placement, appreciate input. -Supportive care. Urinary tract infection -Awaiting urine culture. -Continue on Rocephin 1 g daily. Chronic anemia -Continue monitor hemoglobin -Did review medical records and hemoglobin appears to be stable from a year ago. -Added iron studies. Follow. Hypertension, hyperlipidemia, gastroesophageal reflux -Continue home medications DVT prevention -Sequential compression devices. Discharge Planning: Awaiting podiatry consult and clinical improvement. (2) Fracture of medial malleolus Qualifiers: Encounter type: initial encounter Fracture type: closed Fracture alignment: displaced Laterality: right Qualified Code(s): S82.51XA - Displaced fracture of medial malleolus of right tibia, initial encounter for closed fracture
[2017-12-22] MEDS: Carvedilol 12.5 MG Tablet PO SCH ×2 (10:58→21:45)
[2017-12-22] MEDS ORDERED: Sodium Chlor 0.9% Inj 500 ML IV.CONT SCH (11:00)
[2017-12-22] MEDS: Morphine Sulfate Inj 2 MG/ML Vial IV.PUSH PRN ×2 (12:21→19:50)
--- NOTE | 2017-12-22 13:25 | P.CON ---
History of Present Illness Primary Care Provider: Radha Amaya MD Chief Complaint: Unable to ambulate History of Present Illness: Patient seen bedside. Discussed right ankle fracture with patient and treatment options, conservative versus surgical intervention. I am happy to treat patient for right ankle fracture however seeing as patient has had recent surgery with Dr. Tijerina I spoke with patient about consult and offered her treatment/ intervention/consult by Dr. Gates and or his associates since she is a long standing patient of their group. At this time she would like to be seen by Dr. Gates. Spoke with Savanna Vidales about ortho consult and situation, at this time will proceed with patient's preference. Thank you for this consult. [facility] - History History Provided By: Patient - Medical History Medical History: Medical History (Last Reviewed 12/22/17 @ 07:59 by Leroy Munoz) Presence of orthopedic joint implant (Acute) Fracture of right ankle Back pain Edema Full dentures GERD (gastroesophageal reflux disease) H/O: hysterectomy Hiatal hernia High cholesterol Hypertension - Surgical History Surgical History: Surgical History (Last Reviewed 12/22/17 @ 07:59 by Leroy Munoz) History of back surgery History of bladder suspension procedure History of carpal tunnel surgery History of esophagogastroduodenoscopy (EGD) History of heart artery stent History of lumbar laminectomy History of revision of total knee arthroplasty History of total knee replacement History of total left hip replacement Hx of appendectomy Hx of cataract surgery Hx of cholecystectomy Hx of rotator cuff surgery - Family History Family History: Family History (Last Updated 12/21/17 @ 16:15 by SHIRA Rivera) Mother Family history of heart disease - Tobacco History Second Hand Smoke Exposure: No Tobacco Use In Past 30 Days: No Smoking Status: Never smoker - Alcohol History How Often Do You Have a Drink Containing Alcohol: Never - Substance Use History Substance History: No History of Abuse - Travel History Recent Travel in the [place] Within the Last 8 Weeks: No Recent Travel Out of the Country Within the Last 8 Weeks: No - Immunization History Tetanus Immunization: <5 Years Hx Influenza Vaccine This Season: No Medications and Allergies Active Medications: Active Medications Acetaminophen (Tylenol) 650 mg PO Q4H PRN PRN Reason: Headache, fever, pain 1-4 Hydrocodone Bitart/Acetaminophen ([place] 10/325) 1 tab PO Q4H PRN PRN Reason: Acute Pain Last Admin: 11/13/18 10:59 Dose: 1 tab Al Hydroxide/Mg Hydroxide (Milk Of Magnesia Liq) 30 ml PO Q12H PRN PRN Reason: Mild Constipation Last Admin: 12/22/17 12:20 Dose: 30 ml Alprazolam (Xanax) 0.25 mg PO Q4H PRN PRN Reason: ANXIETY Aspirin (Ecotrin) [address] [facility] Atorvastatin Calcium (Lipitor) [address] [facility] Bisacodyl (Dulcolax Supp) 10 mg RECTAL DAILY PRN PRN Reason: SEVERE CONSITIPATION Carvedilol (Coreg) 12.[address] [facility] Last Admin: 12/22/17 10:58 Dose: 12.5 mg Estradiol (Estrace) [address] [facility] Ceftriaxone Sodium 1,000 mg/ (Sodium Chloride) 100 mls @ 200 mls/hr IV.SIG Q24H [facility] Last Infusion: 12/21/17 17:27 Dose: Infused Sodium Chloride (Ns Inj) 500 mls @ 30 mls/hr IV.CONT .[id number] [facility] Stop: 12/23/17 03:39 Last Admin: 12/22/17 11:02 Dose: 30 mls/hr Lactulose (Lactulose Liq) 30 ml PO DAILY PRN PRN Reason: SEVERE CONSITIPATION Morphine Sulfate (Morphine Inj) 2 mg IV.PUSH Q4H PRN PRN Reason: BREAKTHROUGH PAIN Last Admin: 12/22/17 12:21 Dose: 2 mg Niacin (Slo-Niacin) [address] [facility] Ondansetron HCl (Zofran Inj) 4 mg IV.PUSH Q6H PRN PRN Reason: NAUSEA OR VOMITING Pantoprazole Sodium (Protonix) [address] [facility] Sennosides (Senokot) 17.2 mg PO Q12H PRN PRN Reason: Moderate Constipation Sodium Chloride (Ns Flush) 2 ml IV.FLUSH PRN PRN PRN Reason: FLUSH AFTER USING IV ACCESS Allergies Allergy/AdvReac Type Severity Reaction Status Date / Time codeine Allergy Severe Nausea/Vomi Verified 12/20/17 12:40 ting penicillin G Allergy Severe RASH Verified 12/20/17 12:40 risedronate sodium Allergy Severe Nausea/Vomi Verified 12/20/17 12:40 ting ibuprofen [From Advil] AdvReac Nausea/Vomi Verified 12/20/17 12:40 ting Home Medications Medication Instructions Recorded Confirmed Type acetaminophen [Tylenol Extra 1,000 mg PO Q6H PRN 10/13/17 12/21/17 History Strength] aspirin [Aspirin Low Dose] 81 mg PO DAILY 10/13/17 12/21/17 History atorvastatin 80 mg PO DAILY 10/13/17 12/21/17 History carvedilol 12.5 mg PO BID 10/13/17 12/21/17 History esomeprazole magnesium [Nexium] 20 mg PO DAILY 10/13/17 12/21/17 History estradiol 1 mg PO DAILY 10/13/17 12/21/17 History niacin 500 mg PO DAILY 10/13/17 12/21/17 History Physical Exam Vital signs: Vital Signs 12/21/17 17:35 12/21/17 20:00 12/22/17 00:00 Temperature 97.8 F 96.0 F L Pulse Rate 58 L 70 80 Respiratory Rate 20 18 18 Blood Pressure 113/47 L 130/59 L 145/65 H Pulse Oximetry 96 96 12/22/17 08:00 12/22/17 08:10 12/22/17 10:59 Temperature 98.3 F Pulse Rate 87 Respiratory Rate 17 18 17 Blood Pressure 194/74 H Pulse Oximetry 96 12/22/17 11:29 12/22/17 12:00 12/22/17 12:23 Temperature 98.0 F Pulse Rate 77 Respiratory Rate 18 16 18 Blood Pressure 152/72 H Pulse Oximetry 93 L Intake & Output 12/21/17 12/22/17 12/22/17 18:59 06:59 18:59 Intake Total 100 / 100 0 / 0 Output Total 300 / 300 Balance 100 / 100 -300 / -300 Weight 86.3 kg 87.8 kg Intake: IV 100 / 100 Rocephin Inj 1,000 MG In NS Inj 100 / 100 100 ML @ 200 mls/hr IV.SIG Q24H [facility] Rx#:[id number] Oral 0 / 0 Output: Urine 300 / 300 Other: Date of Last Bowel Movement 12/21/17 12/21/17 Weight On Admission 86.3 kg Results - Labs CBC & Chem 7: 12/22/17 05:15 12/22/17 05:15 Labs: Laboratory Results - last 24 hr 12/21/17 12/21/17 12/21/17 15:00 15:00 15:40 CBC w Diff Auto diff final WBC 5.8 RBC 3.48 L Hgb 8.8 L Hct 28.1 L MCV 80.6 MCH 25.2 L MCHC 31.3 L RDW 14.6 Plt Count 166 MPV 9.0 Neut % (Auto) 62.5 Lymph % (Auto) 22.6 [place] % (Auto) 12.6 H Eos % (Auto) 2.2 Baso % (Auto) 0.1 Neut # (Auto) 3.7 Lymph # (Auto) 1.3 [place] # (Auto) 0.7 Eos # (Auto) 0.1 Baso # (Auto) 0.0 WBC Differential . Differential Comment . Sodium 135 L Potassium 3.7 Chloride 102 Carbon Dioxide 26.0 Anion Gap 7 BUN 22 H Creatinine 0.78 Estimated GFR 71 L Random Glucose 101 Calcium 8.9 Ur Collection Type Clean catch Urine Color Yellow Urine Clarity Cloudy H Urine pH 6.0 Ur Specific [place] 1.010 Urine Protein Trace Urine Glucose (UA) Negative Urine Ketones Negative Urine Occult Blood Moderate H Urine Nitrate Positive H Urine Bilirubin Negative Urine Urobilinogen 0.2 Ur Leukocyte Esterase Large H Urine RBC 15-50 H Urine WBC 51-189 H Urine WBC Clumps Moderate H Ur Squamous Epith Cells Greater than 10 H Amorphous Sediment Few H Urine Bacteria Many H Micro UA Comment Culture indicated Ur Microscopic Review Microscopic reviewed Urine Collection Time 1540 12/22/17 12/22/17 05:15 05:15 CBC w Diff Auto diff final WBC 5.8 RBC 3.07 L Hgb 8.0 L Hct 24.7 L MCV 80.5 MCH 26.0 L MCHC 32.3 RDW 14.5 Plt Count 153 MPV 8.4 Neut % (Auto) 65.7 Lymph % (Auto) 21.0 [place] % (Auto) 11.3 H Eos % (Auto) 1.8 Baso % (Auto) 0.2 Neut # (Auto) 3.8 Lymph # (Auto) 1.2 [place] # (Auto) 0.7 Eos # (Auto) 0.1 Baso # (Auto) 0.0 WBC Differential . Differential Comment . Sodium 140 Potassium 3.6 Chloride 105 Carbon Dioxide 27.3 Anion Gap 8 BUN 16 Creatinine 0.56 Estimated GFR Greater than 89 Random Glucose 97 Calcium 9.0 Ur Collection Type Urine Color Urine Clarity Urine pH Ur Specific [place] Urine Protein Urine Glucose (UA) Urine Ketones Urine Occult Blood Urine Nitrate Urine Bilirubin Urine Urobilinogen Ur Leukocyte Esterase Urine RBC Urine WBC Urine WBC Clumps Ur Squamous Epith Cells Amorphous Sediment Urine Bacteria Micro UA Comment Ur Microscopic Review Urine Collection Time - Imaging Impressions Pelvis CT 12/21/17 13:40 CONCLUSION: 1. Small low density collection in the posterior left hip region. 2. No definite acute bony pelvic injury
[2017-12-22 13:59] LABS: % Iron Saturation 4.3 % (20-50)
[2017-12-22] MEDS: Sod Chloride 0.9% Inj 1,000 ML IV.CONT SCH (17:23)
[2017-12-22] MEDS: Polysaccharide Iron Complex 150 MG Capsule PO SCH (21:44)
[2017-12-23] MEDS ORDERED: Chlorhexidine Gluconate 2% 1 Pack (2 Cloths) TOPICAL ONE (03:05)
[2017-12-23] MEDS ORDERED: Sodium Chlor 0.9% Inj 500 ML IV.SIG SCH (04:00)
[2017-12-23 05:17] LABS: Baso % (Auto) 0.2 % (0.0-2.0); Eos # (Auto) 0.1 th/mm3 (0.0-0.4); Eos % (Auto) 3.2 % (0.0-4.0); Hematocrit 23.8 % (35.0-46.0); Hemoglobin 7.8 gm/dL (11.6-15.3); Lymph # (Auto) 1.2 th/mm3 (1.0-4.8); Lymph % (Auto) 27.6 % (9.0-44.0); Mean Corpuscular HGB Conc 32.8 % (32.0-36.0); Mean Corpuscular Hemoglobin 25.9 pg (27.0-34.0); Mean Corpuscular Volume 78.8 fL (80.0-100.0); Mean Platelet Volume 8.4 fL (7.0-11.0); Mono # (Auto) 0.6 th/mm3 (0.0-0.9); Mono % (Auto) 13.4 % (0.0-8.0); Neut # (Auto) 2.4 th/mm3 (1.8-7.7); Neut % (Auto) 55.6 % (16.0-70.0); Platelet Count 145 th/mm3 (150-450); Red Blood Count 3.02 mil/mm3 (4.00-5.30); Red Cell Distribution Width 15.7 % (11.6-17.2); White Blood Count 4.4 th/mm3 (4.0-11.0)
[2017-12-23] MEDS: Morphine Sulfate Inj 2 MG/ML Vial IV.PUSH PRN (06:23)
[2017-12-23] MEDS: Carvedilol 12.5 MG Tablet PO SCH ×3 (06:24→21:22)
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
--- NOTE | 2017-12-23 08:33 | ECG ---
Date Performed: 12/23/2017 Time Performed: 04:25:54 PTAGE: 82 years EKG: --- Warning: Data quality may affect interpretation --- Sinus rhythm . Leftward axis Poor R wave progression - probable normal variant Borderline ECG PREVIOUS TRACING : 12/23/2016 16.13 DOCTOR: Jason Carlisle Interpretating Date/Time 12/23/2017 08:31:52
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
[2017-12-23] MEDS: Polyethylene Glycol 3350 17 GM Packet PO SCH (09:27)
[2017-12-23] MEDS: Polysaccharide Iron Complex 150 MG Capsule PO SCH ×2 (09:29→21:22)
[2017-12-23] MEDS: Pantoprazole Sodium 20 MG DR Tablet PO SCH (09:30)
[2017-12-23] MEDS: Estradiol 1 MG Tablet PO SCH (18:52)
[2017-12-23] MEDS: Senna/Docusate Sodium 8.6/50 MG Tablet PO SCH ×2 (18:53→21:22)
[2017-12-24] MEDS: Polysaccharide Iron Complex 150 MG Capsule PO SCH ×2 (08:49→21:24)
[2017-12-24] MEDS: Pantoprazole Sodium 20 MG DR Tablet PO SCH (08:49)
[2017-12-24] MEDS: Carvedilol 12.5 MG Tablet PO SCH ×2 (08:49→21:24)
[2017-12-24] MEDS: Estradiol 1 MG Tablet PO SCH (08:49)
[2017-12-24] MEDS: Senna/Docusate Sodium 8.6/50 MG Tablet PO SCH ×2 (08:49→21:23)
[2017-12-24] MEDS: Polyethylene Glycol 3350 17 GM Packet PO SCH (08:50)
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
[2017-12-24] MEDS ORDERED: Famotidine PF Inj 20 MG/2 ML Vial ONE (12:32)
[2017-12-24] MEDS ORDERED: Lidocaine PF 1% Inj 5 ML Syringe OTHER ONE (12:48)
[2017-12-24] MEDS ORDERED: Famotidine PF Inj 20 MG/2 ML Vial IV.PUSH ONE (13:00)
[2017-12-24] MEDS ORDERED: Sugammadex Inj 200 MG/2 ML Vial IV.PUSH ONE (13:57)
[2017-12-24] MEDS ORDERED: fentaNYL Citrate Inj 100 MCG/2 ML Ampul ONE (14:44)
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
[2017-12-24] MEDS ORDERED: *Labetalol HCl Inj 100 MG/20 ML Vial PERIprocedural Use ONLY IV.PUSH ONE ×2 (14:54→15:02)
[2017-12-24] MEDS ORDERED: Post-op Orders (for Pharmacy) OTHER STA (14:55)
[2017-12-24] MEDS ORDERED: Morphine Inj 4 MG/ML Vial IV.PUSH PRN (14:55)
[2017-12-24] MEDS ORDERED: *morphine SULFATE 10 MG/ML PERIprocedure ONLY ONE ×2 (15:06→15:35)
[2017-12-24] MEDS ORDERED: hydrALAZINE HCl Inj 20 MG/ML Vial ONE (15:29)
[2017-12-24] MEDS ORDERED: hydrALAZINE HCl Inj 20 MG/ML Vial IV.PUSH ONE (15:30)
--- NOTE | 2017-12-24 15:39 | XR ---
EXAM DATE: 12/24/2017 3:15 PM EST AGE/SEX: 82 years / Female INDICATIONS: Open reduction internal fixation right ankle. CLINICAL DATA: This is the patient's initial encounter. Patient reports that signs and symptoms have been present for 1 day and indicates a pain score of Nonresponsive. MEDICAL/SURGICAL HISTORY: Non-responsive. Non-responsive. COMPARISON: HPO, ANKLE COMPLETE RIGHT MIN 3V, 12/20/2017. . FINDINGS: 2 digital spot images of the right ankle. 2 cannulated screws are seen across medial malleolus fractu re. CONCLUSION: Internal fixation hardware in the medial malleolus. Electronically signed by: Franco Green MD 12/24/2017 3:38 PM EST
[2017-12-24] MEDS ORDERED: ceFAZolin 2 GM Premix Inj 2 GM/50 ML PIGGYBACK IV.SIG ONE (16:28)
[2017-12-24] MEDS: Sod Chloride 0.9% Inj 1,000 ML IV.CONT SCH ×2 (23:09→23:10)
[2017-12-25] MEDS ORDERED: Enoxaparin Inj 30 MG/0.3 ML Syringe SQ SCH (02:00)
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
[2017-12-25] MEDS: Pantoprazole Sodium 20 MG DR Tablet PO SCH (09:29)
[2017-12-25] MEDS: Senna/Docusate Sodium 8.6/50 MG Tablet PO SCH (09:29)
[2017-12-25] MEDS: Estradiol 1 MG Tablet PO SCH (09:29)
[2017-12-25] MEDS: Polysaccharide Iron Complex 150 MG Capsule PO SCH (09:29)
[2017-12-25] MEDS: Carvedilol 12.5 MG Tablet PO SCH (09:29)
[2017-12-25] MEDS: Polyethylene Glycol 3350 17 GM Packet PO SCH (09:30)
[2017-12-25 09:50] LABS: Hemoglobin 9.2 gm/dL (11.6-15.3)
[2017-12-25 10:18] VITALS: RESP 16
[2017-12-25 12:07] VITALS: BP 130/60; PULSE 77; TEMP 97.9; O2SAT 94
== END 2017-12-25 16:00 | DRG 493 ==
LOC: PHEFT 13:11 → PHEDA 15:56 → PH3 17:31 → N06 12-22 20:38
PROVIDERS: ADMIT Internal Medicine; ATTEND Internal Medicine
PROC: ORIFANK (2017-12-24 12:48)
CPT/HCPCS: 72192; 73600; 76000; 80048; 81001; 83540; 83550; 85014; 85018; 85025; 87077; 87086; 87186; 90774; 90775; 93005; 96374; 96375; 97110; 97161; 97167; 97530; 97535; 99285; C1713; C1776; C8952; J0131; J0360; J0690; J0696; J1100; J1650; J2250; J2270; J2405; J2704; J3010; J3370; J7030; J7040; J7120